=== PATIENT | male | born 1955 | race African-American/Black ===

== ENCOUNTER 2017-07-26 14:15 | Outpatient (CLI) | payer OTHER ==
[2017-07-26 15:08] LABS: INR-International Normal Ratio 1.1; PTT 28.8 SEC (22.9-36.1); Prothrombin Time 14.2 SEC (12.0-14.7)
[2017-07-26 15:18] LABS: ALT (SGPT) 29 U/L (8-55); AST (SGOT) 31 U/L (5-34); Albumin 3.9 g/dL (3.5-5.0); Alkaline Phosphatase 177 U/L (40-150); Anion Gap 13 mmol/L (10-20); BUN (Urea Nitrogen) 26 mg/dL (8.4-25.7); Bilirubin, Total 2.7 mg/dL (0.2-1.2); Calc. Creatinine Clearance 0 mL/min (70-130); Calcium 9.6 mg/dL (7.8-10.44); Carbon Dioxide 30 mmol/L (22-29); Chloride 101 mmol/L (98-107); Estimated GFR-MDRD 78; Globulin 3.8 g/dL (2.4-3.5); Glucose 229 mg/dL (70-105); Potassium 3.5 mmol/L (3.5-5.1); Protein, Total 7.7 g/dL (6.0-8.3); Sodium 140 mmol/L (136-145)
== END 2017-07-26 14:16 | disposition home or self-care (01) ==
LOC: LABBT 14:15
PROVIDERS: ATTEND Internal Medicine Cardiovascular Disease
DX: Z01.818 Encounter for other preprocedural examination (principal); I50.9 Heart failure, unspecified
CPT/HCPCS: 80053; 85610; 85730

== ENCOUNTER → 2017-07-27 | Day surgery (SDC) | payer OTHER ==
[2017-07-26 14:35] VITALS: BMI 26.3
[~2017-07-27] MED LIST: Diazepam 5 MG TAB ONE; Heparin 10,000 UNITS/1 ML VIAL ONE; Iopamidol 370 76% 100 ML VIAL ONE; Lidocaine 1% (PF) 30 ML VIAL ONE; Nitroglycerin 100MG/250ML BOT 250 ML ONE; Verapamil 5 MG/2 ML VIAL ONE
== END ==
LOC: CCL 09:43
PROVIDERS: ATTEND Internal Medicine Cardiovascular Disease
DX: I25.10 Atherosclerotic heart disease of native coronary artery without angina pectoris (principal); I11.0 Hypertensive heart disease with heart failure; I50.20 Unspecified systolic (congestive) heart failure; I25.5 Ischemic cardiomyopathy; E11.9 Type 2 diabetes mellitus without complications; E78.5 Hyperlipidemia, unspecified; F17.210 Nicotine dependence, cigarettes, uncomplicated; Z79.4 Long term (current) use of insulin; Z79.82 Long term (current) use of aspirin
CPT/HCPCS: 36416; 80053; 85610; 85730; 93458; C1769; J1644; J2001

== ENCOUNTER 2017-08-30 11:12 | Outpatient (CLI) | payer OTHER ==
[2017-08-30 13:05] LABS: #Eosinphils 0.1 thou/uL (0.0-0.7); #Lymphocytes 1.4 thou/uL (1.20-3.40); #Monocytes 0.4 thou/uL (0.11-0.59); #Neutrophils 3.8 thou/uL (1.40-6.50); %Basophils 0.6 % (0.0-1.0); %Eosinophils 1.5 % (0.0-10.0); %Lymphocytes 23.6 % (21.0-51.0); %Monocytes 7.6 % (0.0-10.0); %Neutrophils 66.7 % (42.0-75.0); Hemoglobin 13.1 g/dL (14.0-18.0); Mean Corpuscular HGB CONC 33.3 g/dL (32.0-36.0); Mean Corpuscular Hemoglobin 35.2 pg (27.0-31.0); Mean Platelet Volume 8.8 fL (7.4-10.4); Platelet Count 130 thou/uL (130-400); RBC Distribution Width 13.5 % (11.5-14.5); Red Blood Cell (RBC) Count 3.71 mill/uL (4.70-6.10); White Blood Cell (WBC) Count 5.7 thou/uL (4.8-10.8)
[2017-08-30 13:24] LABS: Anion Gap 13 mmol/L (10-20); BUN (Urea Nitrogen) 24 mg/dL (8.4-25.7); Calc. Creatinine Clearance 0 mL/min (70-130); Calcium 9.2 mg/dL (7.8-10.44); Carbon Dioxide 27 mmol/L (22-29); Chloride 102 mmol/L (98-107); Estimated GFR-MDRD 68; Glucose 125 mg/dL (70-105); Potassium 3.1 mmol/L (3.5-5.1); Sodium 139 mmol/L (136-145)
== END 2017-08-30 11:13 | disposition home or self-care (01) ==
LOC: LABBT 11:12
PROVIDERS: ATTEND Surgery
DX: Z01.812 Encounter for preprocedural laboratory examination (principal); K40.90 Unilateral inguinal hernia, without obstruction or gangrene, not specified as recurrent
CPT/HCPCS: 80048; 85025

== ENCOUNTER 2017-09-09 06:38 | Day surgery (SDC) | payer OTHER ==
[2017-08-30 11:32] VITALS: BMI 23.6
[2017-09-09] MEDS ORDERED: CEFAZOLIN/Water 2 GM/20 ML SYRINGE ONE (07:07)
[2017-09-09] MEDS ORDERED: Bupivacaine/Epinephrine 0.25% 30 ML VIAL ONE (08:22)
[2017-09-09] MEDS ORDERED: Lidocaine 2% 10 ML INJ ONE (08:22)
[2017-09-09] MEDS ORDERED: Ketamine 50 MG/ML VIAL ONE (08:39)
[2017-09-09] MEDS ORDERED: Midazolam HCl 2 mg/2 ml Vial ONE (08:39)
[2017-09-09] MEDS ORDERED: Bupivacaine PF 0.5% 30 ML VIAL ONE (09:15)
[2017-09-09] MEDS ORDERED: HYDROcodone/Acetaminophen 5/325 mg Tablet ONE (11:23)
[2017-09-09] MEDS ORDERED: Ondansetron HCl/PF 4 MG/2 ML Vial ONE (12:39)
[2017-09-09] MEDS ORDERED: PROPOFOL 200 MG/20 ML VIAL ONE (12:39)
--- NOTE | 2017-09-10 07:24 | OP ---
DATE OF PROCEDURE: 09/09/2017 PREOPERATIVE DIAGNOSIS: Left inguinal hernia. POSTOPERATIVE DIAGNOSIS: Left inguinal hernia. PROCEDURE: Left inguinal hernia repair with mesh, PHS extended. SURGEON: Geovanny Moss M.D. ANESTHESIA: General. ESTIMATED BLOOD LOSS: Minimal. COMPLICATIONS: None. SPECIMEN: None. FINDINGS: Indirect left inguinal hernia. TECHNIQUE: The patient was taken to the operating room and placed supine on the table. After genera l anesthetic was obtained, bilateral groins and abdomen shaved, prepped, and draped in a sterile [facility]. Oblique incision made above the pubic tubercle in left lower quadrant. Cautery dissected down through Ngoc's to expose the external oblique. External oblique fibers opened along the course of the external ring. Contents of inguinal canal were resected from the backside of the external obliqu e. The ilioinguinal nerve was found and segmentally removed to prevent postop pain. Cord structures were mobilized on the pubic tubercle using a Nicolette drain. Superior medially dissection on the cor d showed there to be an indirect hernia sac. High ligation of the sac was performed after it was ope aria to reveal no obvious intra-abdominal contents. There was also a direct defect. The floor was op ened and the preperitoneal space bluntly dissected using wet unraveled Ray-Wai. The PHS extended mes h brought into the sterile field. The underlay was placed in the preperitoneal space, its fibers pride d out flat against the posterior abdominal. The overlay is laid in the floor of the inguinal canal. The overlay is cut to incorporate the internal ring. The overlay is sewn distally to the pubic tube rcle, medially to the transverse arch, laterally to the shelving edge of inguinal ligament. The two ends of cut mesh were reapproximated at the shelving edging of ligament to reform the internal ring. The mesh is tucked back under the external oblique proximally. The wound was irrigated. There is n o bleeding. Local anesthetic is applied. Tunneled catheter for postop pain threaded from above the incision left on top of the mesh. External oblique closed using 3-0 Vicryl. Ngoc's closed using 3 -0 Vicryl. Skin closed with running 4-0 Monocryl and Dermabond. The patient is in en route to [facility] [place] in stable condition. All instrument counts, needle counts, lap counts were correct.
== END 2017-09-09 12:15 | disposition home or self-care (01) ==
LOC: SDC 06:38
PROVIDERS: ATTEND Surgery
PROC: 0YU60JZ Supplement Left Inguinal Region with Synthetic Substitute, Open Approach (ICD-10-PCS; principal; 2017-09-09)
DX: K40.20 Bilateral inguinal hernia, without obstruction or gangrene, not specified as recurrent (principal); I25.10 Atherosclerotic heart disease of native coronary artery without angina pectoris; I13.0 Hypertensive heart and chronic kidney disease with heart failure and stage 1 through stage 4 chronic kidney disease, or unspecified chronic kidney disease; E11.22 Type 2 diabetes mellitus with diabetic chronic kidney disease; N18.9 Chronic kidney disease, unspecified; I50.9 Heart failure, unspecified; E78.5 Hyperlipidemia, unspecified; Z87.891 Personal history of nicotine dependence; Z79.4 Long term (current) use of insulin; Z79.51 Long term (current) use of inhaled steroids; Z79.82 Long term (current) use of aspirin; Z79.899 Other long term (current) drug therapy; Z95.5 Presence of coronary angioplasty implant and graft; Z95.810 Presence of automatic (implantable) cardiac defibrillator
CPT/HCPCS: 36416; A4306; C1781; J2250; J2405; J2704; S0020

== ENCOUNTER 2018-03-06 05:08 | Emergency (ER) | payer OTHER ==
[2018-03-06 06:53] LABS: #Basophils 0.1 thou/uL (0.0-0.2); #Eosinphils 0.1 thou/uL (0.0-0.7); #Lymphocytes 1.3 thou/uL (1.20-3.40); #Monocytes 0.8 thou/uL (0.11-0.59); #Neutrophils 5.4 thou/uL (1.40-6.50); %Basophils 0.8 % (0.0-1.0); %Eosinophils 1.6 % (0.0-10.0); %Lymphocytes 16.6 % (21.0-51.0); %Monocytes 10.4 % (0.0-10.0); %Neutrophils 70.7 % (42.0-75.0); Hemoglobin 13.6 g/dL (14.0-18.0); MDiff Complete? YES; Macrocytosis SLIGHT = 6-15 cells (100X) (0-5/hpf); Mean Corpuscular HGB CONC 31.9 g/dL (32.0-36.0); Mean Corpuscular Hemoglobin 33.8 pg (27.0-31.0); Mean Platelet Volume 8.7 fL (7.4-10.4); Platelet Count 140 thou/uL (130-400); RBC Distribution Width 13.7 % (11.5-14.5); Red Blood Cell (RBC) Count 4.02 mill/uL (4.70-6.10); White Blood Cell (WBC) Count 7.6 thou/uL (4.8-10.8)
[2018-03-06 06:56] LABS: ALT (SGPT) 20 U/L (8-55); AST (SGOT) 28 U/L (5-34); Albumin 3.9 g/dL (3.4-4.8); Alkaline Phosphatase 183 U/L (40-150); Anion Gap 15 mmol/L (10-20); BUN (Urea Nitrogen) 41 mg/dL (8.4-25.7); Calc. Creatinine Clearance 0 mL/min (70-130); Carbon Dioxide 27 mmol/L (23-31); Chloride 101 mmol/L (98-107); Estimated GFR-MDRD 57; Globulin 4.2 g/dL (2.4-3.5); Glucose 176 mg/dL (80-115); Potassium 3.6 mmol/L (3.5-5.1); Protein, Total 8.1 g/dL (5.8-8.1); Sodium 139 mmol/L (136-145)
[2018-03-06] MEDS ORDERED: Lidocaine 1% (PF) 30 ML VIAL ONE (07:16)
[2018-03-06] MEDS ORDERED: Ketorolac Tromethamine 30 MG/ML VIAL ONE (07:57)
[2018-03-06] MEDS ORDERED: Morphine 4 MG/ML VIAL ONE (07:57)
[2018-03-06 08:52] LABS: Body Fluid Source SYNOVIAL FLUID
[2018-03-06 08:53] LABS: Clarity Cloudy/Turbid (Clear)
[2018-03-06 08:54] LABS: BF Color Yellow; Tube # EDTA
--- NOTE | 2018-03-06 08:58 | RAD ---
RADIOGRAPH RIGHT KNEE 4 VIEWS: HISTORY: A 62-year-old male with right knee pain. FINDINGS: Joint effusion. No fracture or dislocation. Joint spaces are maintained without erosions or signifi cant osteophytes. Tiny enthesophyte at anterior superior pole of patella. Soft tissue edema. IMPRESSION: 1. Joint effusion and soft tissue edema. 2. No major osseous abnormality. POS: [facility]
[2018-03-06 09:15] LABS: BF RBC Count - Manual 128 /cumm; BF WBC/Nonhematics Ct. - Manua 224 /cumm
[2018-03-06 09:23] LABS: BF Segmented Neutrophils 60 %; Cell Count Non Hematic 40 %
--- NOTE | 2018-03-06 15:32 | CT ---
PRELIMINARY REPORT/[facility]/EMERGENTY AFTER-HOURS PROCEDURE CT Right Lower Extremity Without IV Contrast, Knee EXAM DATE/TIME: 03/06/2018 6:37 AM CLINICAL HISTORY: 62 years old, male; Pain; Knee; Right; Patient HX: 62m presents for evaluation of r knee swelling and pain which he reports has been unbearable for 4 days now. TECHNIQUE: CT of the Right lower extremity without intravenous contrast was performed. Exam focused on the knee. Coronal and sagittal reformatted images were created and reviewed. COMPARISON: No relevant prior studies available. FINDINGS: Bones/joints: There is a small to moderate RIGHT knee effusion. No acute bony fracture is demonstrate d. No acute RIGHT knee fractures demonstrated. Soft tissues: There is prepatellar soft tissue thickening/edema. IMPRESSION: 1. There is a small to moderate RIGHT knee effusion. Correlate clinically for infection. 2. There is prepatellar soft tissue thickening/edema. Thank you for allowing us to participate in the care of your patient. Dictated and Authenticated by: Irving Mancilla MD 03/06/2018 6:57 AM Central Time ([place] & [place]) FINAL REPORT CT RIGHT LOWER EXTREMITY WITHOUT IV CONTRAST: (Right knee) I agree with the preliminary report given by Dr. Irving Mancilla of [facility]. POS: [facility]
== END 2018-03-06 10:00 | disposition home or self-care (01) ==
LOC: ERS 05:08
DX: M10.9 Gout, unspecified (principal); I11.0 Hypertensive heart disease with heart failure; I50.9 Heart failure, unspecified; E11.9 Type 2 diabetes mellitus without complications; K21.9 Gastro-esophageal reflux disease without esophagitis; E78.5 Hyperlipidemia, unspecified; Z87.891 Personal history of nicotine dependence
CPT/HCPCS: 20610; 36415; 80053; 82945; 85025; 85060; 87070; 87205; 89051; 89060; 96372; J1885; J2001; J2270

== ENCOUNTER 2018-06-06 08:45 | Outpatient (CLI) | payer OTHER ==
[2018-06-06 10:28] LABS: #Lymphocytes 1.5 thou/uL (1.20-3.40); #Monocytes 0.5 thou/uL (0.11-0.59); #Neutrophils 4.2 thou/uL (1.40-6.50); %Basophils 0.7 % (0.0-1.0); %Eosinophils 0.7 % (0.0-10.0); %Lymphocytes 24.1 % (21.0-51.0); %Monocytes 8.1 % (0.0-10.0); %Neutrophils 66.4 % (42.0-75.0); Hemoglobin 14.7 g/dL (14.0-18.0); Mean Corpuscular HGB CONC 32.2 g/dL (32.0-36.0); Mean Corpuscular Hemoglobin 34.7 pg (27.0-31.0); Mean Platelet Volume 8.8 fL (7.4-10.4); Platelet Count 124 thou/uL (130-400); RBC Distribution Width 13.5 % (11.5-14.5); Red Blood Cell (RBC) Count 4.24 mill/uL (4.70-6.10); White Blood Cell (WBC) Count 6.4 thou/uL (4.8-10.8)
[2018-06-06 10:33] LABS: Anion Gap 14 mmol/L (10-20); BUN (Urea Nitrogen) 36 mg/dL (8.4-25.7); Calc. Creatinine Clearance 0 mL/min (70-130); Calcium 10.3 mg/dL (7.8-10.44); Carbon Dioxide 31 mmol/L (23-31); Chloride 97 mmol/L (98-107); Estimated GFR-MDRD 63; Glucose 120 mg/dL (80-115); Potassium 3.4 mmol/L (3.5-5.1); Sodium 139 mmol/L (136-145)
== END 2018-06-06 08:46 | disposition home or self-care (01) ==
LOC: LABBT 08:45
PROVIDERS: ATTEND Surgery
DX: Z01.818 Encounter for other preprocedural examination (principal); K40.90 Unilateral inguinal hernia, without obstruction or gangrene, not specified as recurrent
CPT/HCPCS: 80048; 85025; 93005; 93010

== ENCOUNTER 2018-06-09 06:30 | Day surgery (SDC) | payer OTHER ==
[2018-06-06 08:59] VITALS: BMI 22.4
[2018-06-09] MEDS ORDERED: Lidocaine 2% PF 5 ML VIAL ONE (08:26)
[2018-06-09] MEDS ORDERED: Bupivacaine PF 0.5% 30 ML VIAL ONE (08:26)
[2018-06-09] MEDS ORDERED: Bupivacaine/Epinephrine 0.25% 30 ML VIAL ONE (08:26)
[2018-06-09] MEDS ORDERED: Fentanyl 250 MCG/5 ML VIAL ONE (09:07)
[2018-06-09] MEDS ORDERED: PHENYLEPHRINE-NS 100 MCG/ML 10 ML SYRINGE ONE ×2 (09:44→14:45)
--- NOTE | 2018-06-09 11:39 | OP ---
DATE OF PROCEDURE: 06/09/2018 PREOPERATIVE DIAGNOSIS: Right inguinal hernia. POSTOPERATIVE DIAGNOSIS: Right inguinal hernia. PROCEDURE PERFORMED: Right inguinal hernia repair with mesh, PHS extended. ANESTHESIA: General. ESTIMATED BLOOD LOSS: Minimal. COMPLICATIONS: None. FINDINGS: Right inguinal hernia. DESCRIPTION OF PROCEDURE: The patient taken to the operating room and laid supine on the operating room table. After general anesthetic was obtained, the abdomen and right groin were all shaved, prepped, and draped in a sterile fashion. An oblique incision was made above the pubic tubercle in the right lower quadrant. Cautery was dissected down through the Ngoc's to expose the external oblique. External oblique fibers were opened along their course of the external ring. Contents of the inguinal canal were dissected from backside of the external oblique. The ilioinguinal nerve was found and segmentally high removed to prevent postop pain. Cord structures were mobilized on the pubic tubercle using a Nicolette drain. Dissection superiorly and medially on the cord showed there to be an indirect hernia sac. A high ligation was performed using 2-0 silk. There was no direct hernia. PHS extended mesh was brought into the sterile field. The underlay was placed in the preperitoneal space through the internal ring. The overlay was laid in the floor of the inguinal canal. The overlay was cut laterally to incorporate the internal ring. The overlay was sewn distally into the pubic tubercle medially to the transverse arch, laterally to the shelving edge of inguinal ligament using permanent braided suture. The two ends of the cut mesh were reapproximated at the shelving edge of inguinal ligament to reform the internal ring. The extra mesh was tacked back down to the external oblique proximally. The wound was irrigated. There was no bleeding. Local anesthetic was applied. Tunneled catheter for postop pain threaded from above the incision, left on top of the mesh. External oblique was closed using 3-0 Vicryl, Ngoc's closed using 3-0 Vicryl, skin was closed using running 4-0 Monocryl and Dermabond. The patient was sent to Recovery in stable condition. All instrument counts, needle counts, and lap counts were correct. Job ID: [id number]
[2018-06-09] MEDS ORDERED: Lidocaine 1% PF 5 ML VIAL ONE (14:45)
[2018-06-09] MEDS ORDERED: Ondansetron PF 4 MG/2 ML Vial ONE (14:45)
[2018-06-09] MEDS ORDERED: PROPOFOL 200 MG/20 ML VIAL ONE (14:45)
== END 2018-06-09 12:05 | disposition home or self-care (01) ==
LOC: SDC 06:30
PROVIDERS: ATTEND Surgery
PROC: 0YU50JZ Supplement Right Inguinal Region with Synthetic Substitute, Open Approach (ICD-10-PCS; principal; 2018-06-09)
DX: K40.90 Unilateral inguinal hernia, without obstruction or gangrene, not specified as recurrent (principal); E11.22 Type 2 diabetes mellitus with diabetic chronic kidney disease; I12.9 Hypertensive chronic kidney disease with stage 1 through stage 4 chronic kidney disease, or unspecified chronic kidney disease; N18.9 Chronic kidney disease, unspecified; I50.20 Unspecified systolic (congestive) heart failure; K21.9 Gastro-esophageal reflux disease without esophagitis; E78.5 Hyperlipidemia, unspecified; I25.10 Atherosclerotic heart disease of native coronary artery without angina pectoris; Z79.4 Long term (current) use of insulin; Z79.51 Long term (current) use of inhaled steroids; Z79.891 Long term (current) use of opiate analgesic; Z79.899 Other long term (current) drug therapy; Z95.0 Presence of cardiac pacemaker; Z95.5 Presence of coronary angioplasty implant and graft; Z87.891 Personal history of nicotine dependence
CPT/HCPCS: 36416; A4306; C1781; J0690; J2001; J3010; S0020

== ENCOUNTER 2018-12-01 10:09 | Outpatient (CLI) | payer OTHER ==
--- NOTE | 2018-12-01 10:50 | RAD ---
Exam:3 views right knee HISTORY: Pain. Swelling. COMPARISON: None FINDINGS: Small suprapatellar effusion. Patchy bone demineralization which may be due to osteopenia. Joint spaces are preserved. No acute fractures or malalignment. Remote injury to the proximal fibula is noted. IMPRESSION: No acute fracture. Patchy bone demineralization. Correlate for osteopenia. If there is co ncern for a marrow infiltrative process, MRI can be performed.
== END 2018-12-01 10:10 | disposition home or self-care (01) ==
LOC: BICRAD 10:09
PROVIDERS: ATTEND Family Medicine
DX: M25.561 Pain in right knee (principal); M81.0 Age-related osteoporosis without current pathological fracture

== ENCOUNTER 2019-01-29 01:37 | Emergency (ER) | payer OTHER ==
[2019-01-29] MEDS ORDERED: HYDROcodone/Acetaminophen 5/325 mg Tablet ONE (02:22)
--- NOTE | 2019-01-29 08:01 | RAD ---
EXAM: Portable chest PROVIDED CLINICAL HISTORY: Chest pain COMPARISON: 10/06/2016 FINDINGS: Cardiac silhouette remains enlarged. Left subclavian cardiac pacing device is again seen with lead ti ps in similar positions. No focal consolidation, pleural fluid or pneumothorax evident. IMPRESSION: No evidence for an acute cardiopulmonary process.
--- NOTE | 2019-01-29 08:03 | RAD ---
EXAM: XR Knee Lt 4 View STANDARD PROVIDED CLINICAL HISTORY: Pain status post injury COMPARISON: None FINDINGS: There is a fracture involving the tibial eminence without significant displacement. Diffuse regional osteopenia without evidence for additional fracture. Alignment appears anatomic. Joint spaces appear preserved. IMPRESSION: Tibial eminence fracture. Orthopedic consultation recommended. CODE T
== END 2019-01-29 03:15 | disposition home or self-care (01) ==
LOC: ERS 01:37
DX: M25.562 Pain in left knee (principal); R07.89 Other chest pain; I11.0 Hypertensive heart disease with heart failure; I50.9 Heart failure, unspecified; E11.9 Type 2 diabetes mellitus without complications; E78.5 Hyperlipidemia, unspecified; E78.00 Pure hypercholesterolemia, unspecified; K21.9 Gastro-esophageal reflux disease without esophagitis; Z87.891 Personal history of nicotine dependence; Z79.4 Long term (current) use of insulin; W18.30XA Fall on same level, unspecified, initial encounter
CPT/HCPCS: 71045

== ENCOUNTER 2019-06-26 19:06 | Emergency (ER) | payer OTHER ==
[2019-06-26] MEDS ORDERED: Morphine 4 MG/ML VIAL ONE (20:51)
[2019-06-26] MEDS ORDERED: Ondansetron ODT 4 MG TAB ONE (20:51)
--- NOTE | 2019-06-26 21:40 | RAD ---
Exam:4 views right elbow HISTORY: Pain. Swelling. COMPARISON: None FINDINGS: No joint effusion. Mild unchanged. No fracture or malalignment. IMPRESSION: No fracture.
--- NOTE | 2019-06-26 21:43 | RAD ---
Exam:3 views right wrist HISTORY: Swelling. Pain. COMPARISON: None FINDINGS: Intercarpal and radiocarpal joint spaces are preserved. Mild bony mineralization the visualized distal radius and ulna. No fracture, cortical irregularity or periosteal reaction. There is soft tissue swelling. IMPRESSION: 1. Distal forearm soft tissue swelling. 2. Nonspecific bony mineralization. The possibility of cellulitis and osteomyelitis cannot be exclude d. Correlate clinically.
== END 2019-06-26 22:08 | disposition home or self-care (01) ==
LOC: ERS 19:06
DX: M25.521 Pain in right elbow (principal); M25.531 Pain in right wrist; I11.0 Hypertensive heart disease with heart failure; I50.9 Heart failure, unspecified; E11.9 Type 2 diabetes mellitus without complications; E78.5 Hyperlipidemia, unspecified; E78.00 Pure hypercholesterolemia, unspecified; K21.9 Gastro-esophageal reflux disease without esophagitis; M10.9 Gout, unspecified; Z79.4 Long term (current) use of insulin; Z87.891 Personal history of nicotine dependence; Z79.82 Long term (current) use of aspirin
CPT/HCPCS: 96372; J2270; Q0162

== ENCOUNTER 2019-07-28 13:26 | Emergency (ER) | payer OTHER ==
[2019-07-28 14:06] LABS: Hemoglobin 13.6 g/dL (14.0-18.0); Mean Corpuscular HGB CONC 32.7 g/dL (32.0-36.0); Mean Corpuscular Hemoglobin 35.7 pg (27.0-31.0); RBC Distribution Width 14.3 % (11.5-14.5); Red Blood Cell (RBC) Count 3.81 mill/uL (4.70-6.10)
[2019-07-28 14:29] LABS: Band 14 % (5-11); Lymphocytes 3 % (21-51); MDiff Complete? YES; Macrocytosis SLIGHT = 6-15 cells (100X) (0-5/hpf); Mean Platelet Volume 10.1 fL (7.4-10.4); Monocytes 6 % (0-10); Neutrophil 74 % (42-75); Platelet Count 81 thou/uL (130-400); Platelet Morphology Comment Appears Decreased; Polychromasia SLIGHT = 2-3 cells (100X) (0-2/hpf); Reactive Lymphocytes 3 % (0-10); Target Cells SLIGHT = 2-5 cells (100X) (0-1/hpf); Tear Drops SLIGHT = 2-5 cells (100X) (0-1/hpf)
[2019-07-28 14:34] LABS: ALT (SGPT) 10 U/L (8-55); AST (SGOT) 18 U/L (5-34); Alkaline Phosphatase 265 U/L (40-110); Anion Gap 14 mmol/L (10-20); BUN (Urea Nitrogen) 44 mg/dL (8.4-25.7); Bilirubin, Total 3.2 mg/dL (0.2-1.2); Calc. Creatinine Clearance 0 mL/min (70-130); Calcium 9.3 mg/dL (7.8-10.44); Carbon Dioxide 25 mmol/L (23-31); Chloride 103 mmol/L (98-107); Estimated GFR-MDRD 45; Globulin 4.1 g/dL (2.4-3.5); Glucose 137 mg/dL (80-115); Lipase 23 U/L (8-78); Potassium 4.2 mmol/L (3.5-5.1); Protein, Total 8.1 g/dL (5.8-8.1); Sodium 138 mmol/L (136-145)
[2019-07-28 15:09] LABS: Bilirubin Negative (Negative); Blood, Urine 2+ (Negative); Clarity Extra Turbid (Clear); Glucose, Urine (Dipstick) Normal (Negative); Leukocyte 500 Leu/uL (Negative); Nitrite Negative (Negative); Protein, Urine (Dipstick) 50 mg/dL (Neg-Trace); RBC/HPF Greater than 50 HPF (0-3); Squamous Epithelial None Seen HPF (0-3); Transitional Epithelial 0-3 HPF (None Seen); WBC/HPF Greater than 50 HPF (0-3)
[2019-07-28 15:10] LABS: Bacteria/HPF 2+ HPF (None Seen)
[2019-07-28] MEDS ORDERED: Morphine 4 MG/ML VIAL ONE (16:00)
[2019-07-28] MEDS ORDERED: Ondansetron PF 4 MG/2 ML Vial ONE (16:00)
[2019-07-28] MEDS ORDERED: cefTRIAXone\\ROCEPHIN 1 GM VIAL ONE (16:08)
--- NOTE | 2019-07-28 16:40 | CT ---
CT Abdomen Pelvis WO Con History: Abdominal pain. Hematuria Comparison: None. Findings: Heart size is markedly enlarged. The liver is markedly enlarged with a nodular contour. Und erlying mass evaluation is severely limited. Spleen is not significantly enlarged. Moderate third spacing of fluid. No nephroureterolithiasis or hydroureteronephrosis. No secondary evidence of a recently passed stone. Exophytic hypodensity interpolar left kidney. Superior endplate compression deformities of L1 and L2 appear relatively acute/subacute. Pancreas is normal given noncontrast appearance. Small volume free fluid within the pelvis. No dilated loops of large or small bowel. Moderate diverticular disease of the sigmoid colon and desc ending colon without active current inflammation. Impression: 1. No nephroureterolithiasis or hydroureteronephrosis. No secondary evidence of a recently passed sto ne. 2. Mild prostatomegaly. 3. Large liver with hepatic cirrhosis. Given the lack of prior cross-sectional imaging of the liver, a follow-up liver protocol CT or MRI is recommended nonemergently. 4. Moderate third spacing of fluid and small volume free fluid within the pelvis. 5. Late acute/subacute superior endplate compression deformities of L1 and L2 with minimal height los s.
== END 2019-07-28 18:18 | disposition home or self-care (01) ==
LOC: ERS 13:26
DX: N30.91 Cystitis, unspecified with hematuria (principal); N17.9 Acute kidney failure, unspecified; N40.1 Benign prostatic hyperplasia with lower urinary tract symptoms; K74.60 Unspecified cirrhosis of liver; I11.0 Hypertensive heart disease with heart failure; I50.9 Heart failure, unspecified; E11.9 Type 2 diabetes mellitus without complications; E78.5 Hyperlipidemia, unspecified; E78.00 Pure hypercholesterolemia, unspecified; K21.9 Gastro-esophageal reflux disease without esophagitis; M10.9 Gout, unspecified; Z79.4 Long term (current) use of insulin; Z79.82 Long term (current) use of aspirin; Z79.899 Other long term (current) drug therapy; Z87.891 Personal history of nicotine dependence
CPT/HCPCS: 36415; 74176; 80053; 81003; 81015; 83690; 85025; 87077; 87086; 87186; 96365; 96375; J0696; J2270; J2405

== ENCOUNTER 2019-09-13 16:36 | Emergency (ER) | payer OTHER ==
--- NOTE | 2019-09-13 17:31 | RAD ---
PORTABLE CHEST: 09/13/19 HISTORY: Shortness of breath. Possible fluid overload. COMPARISON: 01/29/19. Cardiomegaly. Mild vascular engorgement. No evidence of infiltrate. No evidence of significant edema. AICD leads are unchanged in position. IMPRESSION: Cardiomegaly with mild vascular engorgement. No evidence of overt edema. POS: [facility]
[2019-09-13 17:55] LABS: Hemoglobin 12.1 g/dL (14.0-18.0); Mean Corpuscular HGB CONC 31.9 g/dL (32.0-36.0); Mean Corpuscular Hemoglobin 34.7 pg (27.0-31.0); Mean Platelet Volume 9.8 fL (7.4-10.4); Platelet Count 95 thou/uL (130-400); RBC Distribution Width 13.7 % (11.5-14.5); Red Blood Cell (RBC) Count 3.47 mill/uL (4.70-6.10); White Blood Cell (WBC) Count 4.5 thou/uL (4.8-10.8)
[2019-09-13 17:56] LABS: #Eosinphils 0.1 thou/uL (0.0-0.7); #Lymphocytes 0.9 thou/uL (1.20-3.40); #Monocytes 0.5 thou/uL (0.11-0.59); #Neutrophils 3.1 thou/uL (1.40-6.50); %Basophils 0.6 % (0.0-1.0); %Eosinophils 1.6 % (0.0-10.0); %Monocytes 11.2 % (0.0-10.0); %Neutrophils 67.7 % (42.0-75.0)
[2019-09-13 18:23] LABS: ALT (SGPT) 8 U/L (8-55); AST (SGOT) 19 U/L (5-34); Albumin 3.7 g/dL (3.4-4.8); Alkaline Phosphatase 250 U/L (40-110); Anion Gap 15 mmol/L (10-20); BUN (Urea Nitrogen) 45 mg/dL (8.4-25.7); Bilirubin, Total 3.4 mg/dL (0.2-1.2); Calc. Creatinine Clearance 0 mL/min (70-130); Calcium 9.1 mg/dL (7.8-10.44); Carbon Dioxide 28 mmol/L (23-31); Chloride 94 mmol/L (98-107); Estimated GFR-MDRD 29; Globulin 3.6 g/dL (2.4-3.5); Glucose 122 mg/dL (80-115); Potassium 3.9 mmol/L (3.5-5.1); Protein, Total 7.3 g/dL (5.8-8.1); Sodium 133 mmol/L (136-145)
[2019-09-13 18:35] LABS: CKMB 1.1 ng/mL (0-6.6)
[2019-09-13] MEDS ORDERED: Furosemide 40 MG/4 ML VIAL ONE ×2 (18:39→18:51)
[2019-09-13] MEDS ORDERED: Furosemide 100 MG/10 ML VIAL ONE ×2 (18:41→18:42)
== END 2019-09-13 18:58 | disposition home or self-care (01) ==
LOC: ERS 16:36
DX: I13.0 Hypertensive heart and chronic kidney disease with heart failure and stage 1 through stage 4 chronic kidney disease, or unspecified chronic kidney disease (principal); E11.22 Type 2 diabetes mellitus with diabetic chronic kidney disease; N18.9 Chronic kidney disease, unspecified; E87.70 Fluid overload, unspecified; I50.9 Heart failure, unspecified; K21.9 Gastro-esophageal reflux disease without esophagitis; M10.9 Gout, unspecified; Z87.891 Personal history of nicotine dependence; Z79.82 Long term (current) use of aspirin; Z79.899 Other long term (current) drug therapy; Z79.84 Long term (current) use of oral hypoglycemic drugs
CPT/HCPCS: 36415; 71045; 80048; 82553; 83880; 84484; 85025; 93005; 94760; 96374; J1940

== ENCOUNTER 2019-12-15 06:46 | Outpatient (CLI) | payer OTHER ==
[2019-12-15 11:38] LABS: Hemoglobin 11.3 g/dL (14.0-18.0); Mean Corpuscular HGB CONC 33.7 G/DL (32.0-36.0); Mean Corpuscular Hemoglobin 34.5 PG (27.0-33.0); Mean Corpuscular Volume 102.1 fl (80.0-100.0); Mean Platelet Volume 12.3 fl (7.4-10.4); Platelet Count 97 10x3/uL (130-400); RBC Distribution Width 14.7 % (11.5-14.5); Red Blood Cell (RBC) Count 3.28 10x6/uL (4.40-5.80); White Blood Cell (WBC) Count 6.2 10x3/uL (4.5-11.0)
[2019-12-15 11:53] LABS: INR-International Normal Ratio 1.4; PTT 30.8 sec (22.0-33.0); Prothrombin Time 14.3 sec (9.5-12.1)
[2019-12-15 12:01] LABS: Anion Gap 19 mmol/L (10-20); BUN (Urea Nitrogen) 36 mg/dL (8.4-25.7); Calc. Creatinine Clearance 0 mL/min (70-130); Carbon Dioxide 22 mmol/L (23-31); Chloride 95 mmol/L (98-107); Estimated GFR-MDRD 52; Glucose 95 mg/dL (80-115); Potassium 3.8 mmol/L (3.5-5.1); Sodium 132 mmol/L (136-145)
[2019-12-16 13:41] LABS: SARS-CoV-2 MS2 Positive; SARS-CoV-2 N Gene Negative; SARS-CoV-2 S Gene Negative; SARS-CoV-2 by NAA Not Detected (NotDetected); SARS-CoV-2 orf1ab Negative
--- NOTE | 2019-12-17 20:55 | EKG ---
Test Reason : Blood Pressure : / mmHG Vent. Rate : 077 BPM Atrial Rate : 077 BPM P-R Int : 272 ms QRS Dur : 222 ms QT Int : 522 ms P-R-T Axes : 067 -68 103 degrees QTc Int : 590 ms AV dual-paced rhythm with prolonged AV conduction Abnormal ECG When compared with ECG of 14-SEP-2019 15:11, Electronic ventricular pacemaker has replaced Sinus rhythm Confirmed by Monica PATRICIO ([id number]) on 12/17/2019 8:55:09 PM Referred By: MOOSE Confirmed By:Monica PATRICIO
== END 2019-12-15 06:47 | disposition home or self-care (01) ==
LOC: LABBT 06:46
PROVIDERS: ATTEND Urology
DX: Z01.818 Encounter for other preprocedural examination (principal); Z12.5 Encounter for screening for malignant neoplasm of prostate; Z20.828 Contact with and (suspected) exposure to other viral communicable diseases; E78.5 Hyperlipidemia, unspecified; I42.9 Cardiomyopathy, unspecified; E11.65 Type 2 diabetes mellitus with hyperglycemia; I25.10 Atherosclerotic heart disease of native coronary artery without angina pectoris; K40.90 Unilateral inguinal hernia, without obstruction or gangrene, not specified as recurrent; M10.9 Gout, unspecified; R31.29 Other microscopic hematuria; N40.1 Benign prostatic hyperplasia with lower urinary tract symptoms; N47.8 Other disorders of prepuce; N47.1 Phimosis; I13.0 Hypertensive heart and chronic kidney disease with heart failure and stage 1 through stage 4 chronic kidney disease, or unspecified chronic kidney disease; E11.22 Type 2 diabetes mellitus with diabetic chronic kidney disease; N18.9 Chronic kidney disease, unspecified; I50.20 Unspecified systolic (congestive) heart failure; F17.200 Nicotine dependence, unspecified, uncomplicated; Z87.440 Personal history of urinary (tract) infections
CPT/HCPCS: 80048; 85027; 85610; 85730; 87635; 93005; 93010; U0003

== ENCOUNTER 2019-12-20 07:15 | Inpatient (IN) | payer OTHER ==
[2019-12-19 09:10] VITALS: BMI 25.0
[2019-12-20] MEDS ORDERED: Levofloxacin 500 mg/D5W 100 ml Premix Bag ONE (08:09)
[2019-12-20] MEDS ORDERED: Fentanyl 100 MCG/2 ML VIAL ONE (09:29)
[2019-12-20] MEDS ORDERED: Famotidine/PF 20 mg/2ml Vial ONE (09:29)
[2019-12-20] MEDS ORDERED: Iothalamate Meglumine 60% 50 ML VIAL FS ONE (09:32)
[2019-12-20] MEDS ORDERED: Phenylephrine 10 MG/ML VIAL ONE (09:39)
[2019-12-20] MEDS ORDERED: Lidocaine 1% PF 5 ML VIAL ONE (09:42)
[2019-12-20] MEDS ORDERED: Glycopyrrolate 0.2 MG/ML 5 ML SYRINGE ONE (09:42)
[2019-12-20] MEDS ORDERED: ePHEDrine 50 MG/ML VIAL ONE (09:42)
[2019-12-20] MEDS ORDERED: Ondansetron PF 4 MG/2 ML Vial ONE (09:42)
[2019-12-20] MEDS ORDERED: Rocuronium Bromide 10 MG/ML (10ML VIAL) ONE (09:42)
[2019-12-20] MEDS ORDERED: PHENYLEPHRINE-NS 100 MCG/ML 10 ML SYRINGE ONE (09:42)
[2019-12-20] MEDS ORDERED: PROPOFOL 200 MG/20 ML VIAL ONE (09:42)
[2019-12-20] MEDS ORDERED: Metoclopramide HCl 10 MG/2 ML VIAL ONE (09:42)
[2019-12-20] MEDS ORDERED: Bacitracin 1 PK ONE ×2 (10:40→10:44)
[2019-12-20] MEDS ORDERED: Dextrose 5% in Water 1,000 ML IV PRN (11:01)
[2019-12-20] MEDS ORDERED: Phenazopyridine HCl 97.5 MG TABLET PO PRN (11:01)
[2019-12-20] MEDS ORDERED: Morphine 4 MG/ML VIAL SLOW IVP PRN (11:01)
[2019-12-20] MEDS ORDERED: hydrALAZINE 20 MG/ML VIAL SLOW IVP PRN ×2 (11:01)
[2019-12-20] MEDS ORDERED: Dextrose 50% Abboject 50 ML SYRINGE SLOW IVP PRN (11:01)
[2019-12-20] MEDS ORDERED: Morphine 2 MG/ML VIAL SLOW IVP PRN (11:01)
[2019-12-20] MEDS ORDERED: Insulin Regular 300 UNITS/3 ML VIAL SC PRN (11:01)
[2019-12-20] MEDS ORDERED: diphenhydrAMINE 50 MG/ML VIAL IVP PRN (11:01)
[2019-12-20] MEDS ORDERED: Mag-Al 1200 mg/1200 mg/30 ML UDCUP PO PRN (11:01)
[2019-12-20] MEDS ORDERED: HYDROcodone/Acetaminophen 5/325 mg Tablet PO PRN ×2 (11:01)
[2019-12-20] MEDS ORDERED: Ondansetron PF 4 MG/2 ML Vial IVP PRN (11:01)
[2019-12-20] MEDS ORDERED: Ondansetron ODT 8 MG TAB PO PRN (11:04)
[2019-12-20] MEDS ORDERED: Furosemide 20 MG/2 ML VIAL ONE (11:06)
--- NOTE | 2019-12-20 11:54 | OP ---
DATE OF PROCEDURE: 12/20/2019 PCP: Dr. Najera. PREOPERATIVE DIAGNOSES: 1. A 64-year-old male with history of BPH. 2. Phimosis. 3. History of urinary tract infection. POSTOPERATIVE DIAGNOSES: 1. A 64-year-old male with history of BPH. 2. Phimosis. 3. History of urinary tract infection. PROCEDURES PERFORMED: Transurethral vaporization of the prostate, dorsal slit. ANESTHESIA: General. COMPLICATIONS: None apparent. IV FLUIDS: 300 mL. ESTIMATED BLOOD LOSS: Minimal. SPECIMEN: None. DRAINS: 22-Belarusian 3-way Styles catheter on gravity. INDICATIONS FOR PROCEDURE AND HISTORY: Mr. Bynum is a pleasant 64-year-old male with history of diabetes, chronic kidney disease, heart failure, who presented for evaluation of UTI, microscopic hematuria, BPH. He underwent workup, demonstrating BPH component on tamsulosin, and had tight phimosis. He presents today for cysto, TUVP, dorsal slit. We discussed options of UroLift, however, it is not approved by insurance as I favor minimally invasive approach, as this was not approved by his insurance, he presents today for TUVP to treat his BPH and also dorsal slit regarding phimosis. He declined circumcision. Cardiac clearance is in chart. DESCRIPTION OF PROCEDURE: After an informed consent was signed, the patient was taken to the operating room, placed in a dorsal lithotomy position with the genital area prepped and draped in the usual surgical sterile fashion. Physical exam demonstrates tight phimosis, however, able to reduce to the level of the coronal sulcus with no lesion seen. At this time, a 21-Belarusian cystoscope was utilized for cystoscopy, which demonstrated trabeculated bladder, bilobar hyperplasia which was mild; however, he does have a tight bladder neck, and a high median bar contributing to his obstructing component. At this time, will transition to visual obturator. Using the 26-Belarusian continuous resectoscope and using a vaporization probe, we performed transurethral vaporization of the prostate, releasing his bladder neck and creating a nice anterior channel. Again, his most obstructing component was high median bar and tight bladder neck, which was addressed. Minimal bleeding was noted and a 22-Belarusian 3-way Styles catheter was inserted with mild resistance at the bladder neck; however, passed without difficulty. A 30 mL was insufflated, irrigates well and attached to gravity bag with a low rate CBI for monitoring. At this time, we performed the dorsal slit. A straight clamp was placed at the dorsal aspect of the prepuce to the level of the coronal sulcus and the foreskin was excised per the dorsal slit with Metzenbaum scissors. The edges were cauterized, and using 3-0 chromic, the edges were closed and approximated using 3-0 chromic in a continuous fashion. Bacitracin pressure dressing was applied, and he tolerated the procedure well and transported to the recovery room in stable condition. Job ID: [id number] [facility]
[2019-12-20] MEDS: cefTRIAXone\\ROCEPHIN 1 GM in Sodium Chloride 0.9% 100 ML IVPB SCH (15:20)
[2019-12-20 16:22] LABS: Anion Gap 14 mmol/L (10-20); BUN (Urea Nitrogen) 34 mg/dL (8.4-25.7); Calc. Creatinine Clearance 56 mL/min (70-130); Calcium 9.1 mg/dL (7.8-10.44); Carbon Dioxide 27 mmol/L (23-31); Chloride 101 mmol/L (98-107); Estimated GFR-MDRD 63; Glucose 94 mg/dL (80-115); Potassium 3.9 mmol/L (3.5-5.1); Sodium 138 mmol/L (136-145)
[2019-12-20 16:32] LABS: #Eosinphils 0.1 thou/uL (0.0-0.7); #Lymphocytes 0.8 thou/uL (1.20-3.40); #Monocytes 0.6 thou/uL (0.11-0.59); #Neutrophils 3.3 thou/uL (1.40-6.50); %Basophils 0.7 % (0.0-1.0); %Eosinophils 2.3 % (0.0-10.0); %Lymphocytes 16.3 % (21.0-51.0); %Monocytes 12.5 % (0.0-10.0); %Neutrophils 68.3 % (42.0-75.0); Hemoglobin 10.9 g/dL (14.0-18.0); MDiff Complete? YES; Macrocytosis SLIGHT = 6-15 cells (100X) (0-5/hpf); Mean Corpuscular HGB CONC 32.5 g/dL (32.0-36.0); Mean Corpuscular Hemoglobin 35.6 pg (27.0-31.0); Mean Platelet Volume 8.7 fL (7.4-10.4); Platelet Count 79 thou/uL (130-400); Platelet Morphology Comment Appears Decreased; Polychromasia SLIGHT = 2-3 cells (100X) (0-2/hpf); RBC Distribution Width 14.2 % (11.5-14.5); Red Blood Cell (RBC) Count 3.06 mill/uL (4.70-6.10); Target Cells SLIGHT = 2-5 cells (100X) (0-1/hpf); White Blood Cell (WBC) Count 4.8 thou/uL (4.8-10.8)
[2019-12-20] MEDS: Insulin Glargine 20 UNITS in Pre-Filled Syringe 1 EACH SC SCH (20:51)
[2019-12-20] MEDS: Atorvastatin Calcium 10 MG TAB PO SCH (20:52)
[2019-12-20] MEDS: Carvedilol 25 MG TAB PO SCH (20:52)
[2019-12-20] MEDS: Docusate 100 MG CAP PO SCH (20:52)
[2019-12-20] MEDS: Famotidine/PF 20 mg/2ml Vial SLOW IVP SCH (20:53)
[2019-12-20] MEDS: HumaLOG 300 UNITS/3 ML VIAL SC SCH (20:54)
[2019-12-20] MEDS ORDERED: Non-Formulary Item 1 EACH (Insulin Detemir [Levemir Flextouch] 100 UNIT/ML Insuln.Pen) SQ SCH (21:00)
[2019-12-21 06:49] LABS: #Eosinphils 0.1 thou/uL (0.0-0.7); #Lymphocytes 0.7 thou/uL (1.20-3.40); #Monocytes 0.8 thou/uL (0.11-0.59); #Neutrophils 4.9 thou/uL (1.40-6.50); %Basophils 0.6 % (0.0-1.0); %Eosinophils 2.2 % (0.0-10.0); %Lymphocytes 10.8 % (21.0-51.0); %Monocytes 11.7 % (0.0-10.0); %Neutrophils 74.6 % (42.0-75.0); Hemoglobin 10.9 g/dL (14.0-18.0); Mean Corpuscular HGB CONC 32.6 g/dL (32.0-36.0); Mean Platelet Volume 9.3 fL (7.4-10.4); Platelet Count 80 thou/uL (130-400); Red Blood Cell (RBC) Count 3.03 mill/uL (4.70-6.10); White Blood Cell (WBC) Count 6.5 thou/uL (4.8-10.8)
[2019-12-21 07:03] LABS: Anion Gap 14 mmol/L (10-20); BUN (Urea Nitrogen) 36 mg/dL (8.4-25.7); Calc. Creatinine Clearance 44 mL/min (70-130); Calcium 9.4 mg/dL (7.8-10.44); Carbon Dioxide 26 mmol/L (23-31); Chloride 100 mmol/L (98-107); Estimated GFR-MDRD 48; Glucose 89 mg/dL (80-115); Sodium 136 mmol/L (136-145)
--- NOTE | 2019-12-21 07:37 | PRG ---
DATE OF SERVICE: SUBJECTIVE: Patient without complaints. Vital signs are stable. CBI was held this morning, restarted due to warner red hematuria. OBJECTIVE: VITAL SIGNS: Stable. Is and Os, 7794 in and 8400 out. P.o. intake is 480. GENERAL: Patient is in no acute distress. HEART: Regular rate. LUNGS: Clear. ABDOMEN: Soft, nontender, and nondistended. : Dorsal slit site dressing changed. Minimal oozing at the incision site. No hematoma appreciated. Styles catheter demonstrates clear output. CBI at a very low rate. I did flush the tubing which demonstrates immediate clearing with no clots. EXTREMITIES: No cyanosis, clubbing, or edema. PERTINENT LABORATORY DATA: White count 6, hemoglobin 10.9, unchanged from preop. Patient does have history of thrombocytopenia with platelet count of 80. Creatinine is 1.76, yesterday was 1.3. His baseline creatinine is variable from 1.1 to 2.1. His renal function is at baseline. IMPRESSION: 1. Mr. Bynum is a 64-year-old male, with history of recurrent urinary tract infection. 2. Phimosis, BPH, postop day #1, status post dorsal slit TUVP. 3. Thrombocytopenia. His postoperative course is stable, will monitor his urine output off CBI. If concern regarding hematuria component if it persists, we will consider discharging patient with indwelling Styles catheter for few days. If it clears up throughout the day today, will consider voiding trial before discharge. Anticipate he will be discharged later this afternoon. Job ID: [id number] [facility]
[2019-12-21] MEDS ORDERED: Tamsulosin HCl 0.4 MG CAP PO SCH (09:00)
[2019-12-21] MEDS: Insulin Glargine 20 UNITS in Pre-Filled Syringe 1 EACH SC SCH ×2 (09:29→21:19)
[2019-12-21] MEDS: Spironolactone 25 MG TAB PO SCH (09:29)
[2019-12-21] MEDS: Docusate 100 MG CAP PO SCH ×2 (09:29→21:18)
[2019-12-21] MEDS: Tamsulosin HCl 0.4 MG CAP PO SCH (09:30)
[2019-12-21] MEDS: Potassium Chloride 20 MEQ TAB PO SCH (09:30)
[2019-12-21] MEDS: Carvedilol 25 MG TAB PO SCH ×2 (09:30→21:18)
[2019-12-21] MEDS: Famotidine/PF 20 mg/2ml Vial SLOW IVP SCH (09:31)
[2019-12-21] MEDS: HumaLOG 300 UNITS/3 ML VIAL SC SCH ×2 (10:22→21:19)
[2019-12-21] MEDS: Torsemide 20 MG TAB PO SCH (10:22)
[2019-12-21] MEDS ORDERED: Cepastat Lozenges 1 LOZ PO PRN (11:48)
[2019-12-21] MEDS: cefTRIAXone\\ROCEPHIN 1 GM in Sodium Chloride 0.9% 100 ML IVPB SCH (12:34)
[2019-12-21] MEDS: Atorvastatin Calcium 10 MG TAB PO SCH (21:18)
[2019-12-22 05:32] LABS: Hemoglobin 11.1 g/dL (14.0-18.0); Mean Corpuscular HGB CONC 32.7 g/dL (32.0-36.0); Mean Corpuscular Hemoglobin 35.1 pg (27.0-31.0); Mean Platelet Volume 9.7 fL (7.4-10.4); Platelet Count 79 thou/uL (130-400); RBC Distribution Width 14.1 % (11.5-14.5); Red Blood Cell (RBC) Count 3.15 mill/uL (4.70-6.10); White Blood Cell (WBC) Count 7.2 thou/uL (4.8-10.8)
[2019-12-22 05:48] LABS: Anion Gap 13 mmol/L (10-20); BUN (Urea Nitrogen) 40 mg/dL (8.4-25.7); Calc. Creatinine Clearance 39 mL/min (70-130); Calcium 9.4 mg/dL (7.8-10.44); Carbon Dioxide 26 mmol/L (23-31); Chloride 100 mmol/L (98-107); Estimated GFR-MDRD 41; Potassium 4.2 mmol/L (3.5-5.1); Sodium 135 mmol/L (136-145)
[2019-12-22 05:54] LABS: Glucose 56 mg/dL (80-115)
[2019-12-22] MEDS ORDERED: Famotidine/PF 20 mg/2ml Vial SLOW IVP SCH (09:00)
[2019-12-22] MEDS: Torsemide 20 MG TAB PO SCH (10:00)
[2019-12-22] MEDS: Spironolactone 25 MG TAB PO SCH (10:01)
[2019-12-22] MEDS: Potassium Chloride 20 MEQ TAB PO SCH (10:01)
[2019-12-22] MEDS: Tamsulosin HCl 0.4 MG CAP PO SCH (10:01)
[2019-12-22] MEDS: Docusate 100 MG CAP PO SCH (10:01)
[2019-12-22] MEDS: Carvedilol 25 MG TAB PO SCH (10:02)
[2019-12-22] MEDS: Insulin Glargine 20 UNITS in Pre-Filled Syringe 1 EACH SC SCH (10:15)
[2019-12-22] MEDS: HumaLOG 300 UNITS/3 ML VIAL SC SCH (10:18)
[2019-12-22] MEDS: cefTRIAXone\\ROCEPHIN 1 GM in Sodium Chloride 0.9% 100 ML IVPB SCH (12:07)
[2019-12-22 12:09] VITALS: BP 108/74; TEMP 99
--- NOTE | 2019-12-22 23:52 | DIS ---
DATE OF ADMISSION: 12/20/2019 DATE OF DISCHARGE: 12/22/2019 ADMITTING DIAGNOSES: 1. BPH, history of recurrent urinary tract infection. 2. Phimosis. DISCHARGE DIAGNOSES: 1. BPH, history of recurrent urinary tract infection. 2. Phimosis. INPATIENT PROCEDURE: Transurethral vaporization of the prostate, dorsal slit. CONDITION: Stable. DISPOSITION: Home with self-care. DISCHARGE MEDICATIONS: 1. Cefdinir 300 mg one p.o. b.i.d. for 5 days. 2. Azo p.r.n. followup appointment, December 25 at 1:15 p.m., for peak flow PVR. BRIEF HOSPITAL COURSE: Mr. Bynum is a pleasant 64-year-old male whom I have been following for history of BPH, obstructive urinary symptoms on medical therapy, phimosis. He has significant cardiopulmonary comorbidities and has been cleared to proceed with procedure. Surgery was uneventful, transurethral vaporization of the prostate was performed. Surgical bed demonstrated no significant bleeding. Dorsal slit was performed due to less invasive maneuver for his phimosis as he declined circumcision. Surgery was uneventful with minimal blood loss, he was observed overnight with CBI. His CBC, H and H remained stable throughout the hospital course. His H and H actually increased with followup labs demonstrating no significant anemia of concern. However, he does have low platelet count of 79 to 80. His CBI was held and he had persistent hematuria. Therefore, I did observe him for another 24 hours. His labs remained stable without evidence of acute blood loss. His CBI was held on postop day #2, which did demonstrate transparent pink tinged urine. Catheter was removed and he underwent successful voiding trial. His PVR checked prior to discharge was not significantly elevated. He felt comfortable going home. He does have a component of hematuria, however, this is mild. He is advised to hold his aspirin, ibuprofen products, and has close followup with me next week. Job ID: [id number] [facility]
[2019-12-25] MEDS ORDERED: Metolazone 5 MG TAB PO SCH (09:00)
== END 2019-12-22 13:10 | disposition home or self-care (01) | DRG 713 ==
LOC: SDC 07:15 → SJJU 11:01 → OBSVTOIN 11:01
PROVIDERS: ADMIT Urology; ATTEND Urology
PROC: 0V507ZZ Destruction of Prostate, Via Natural or Artificial Opening (ICD-10-PCS; principal; 2019-12-22)
DX: N40.1 Benign prostatic hyperplasia with lower urinary tract symptoms (principal); I50.22 Chronic systolic (congestive) heart failure; I13.0 Hypertensive heart and chronic kidney disease with heart failure and stage 1 through stage 4 chronic kidney disease, or unspecified chronic kidney disease; I42.8 Other cardiomyopathies; N02.9 Recurrent and persistent hematuria with unspecified morphologic changes; N47.1 Phimosis; Z20.828 Contact with and (suspected) exposure to other viral communicable diseases; E78.5 Hyperlipidemia, unspecified; I25.10 Atherosclerotic heart disease of native coronary artery without angina pectoris; R39.15 Urgency of urination; R35.0 Frequency of micturition; J30.2 Other seasonal allergic rhinitis; M10.9 Gout, unspecified; N18.9 Chronic kidney disease, unspecified; D69.6 Thrombocytopenia, unspecified; Z87.440 Personal history of urinary (tract) infections; Z95.810 Presence of automatic (implantable) cardiac defibrillator; Z79.4 Long term (current) use of insulin; Z95.5 Presence of coronary angioplasty implant and graft; Z87.891 Personal history of nicotine dependence; Z79.899 Other long term (current) drug therapy
CPT/HCPCS: 36415; 36416; 80048; 85025; 85027; 96374; 96375; 96376; G0378; J0696; J1815; J1940; J1956; J2370; J2405; J2704; J2765; J3010; J3490; S0028

== ENCOUNTER 2020-07-04 10:26 | Inpatient (IN) | payer OTHER ==
[2020-07-04 10:56] LABS: #Eosinphils 0.2 thou/uL (0.0-0.7); #Lymphocytes 0.7 thou/uL (1.20-3.40); #Monocytes 0.6 thou/uL (0.11-0.59); #Neutrophils 3.2 thou/uL (1.40-6.50); %Basophils 0.1 % (0.0-1.0); %Eosinophils 4.1 % (0.0-10.0); %Lymphocytes 15.2 % (21.0-51.0); %Monocytes 11.8 % (0.0-10.0); %Neutrophils 68.9 % (42.0-75.0); Mean Corpuscular HGB CONC 33.6 g/dL (32.0-36.0); Mean Corpuscular Hemoglobin 35.3 pg (27.0-31.0); Mean Platelet Volume 9.9 fL (7.4-10.4); Platelet Count 65 thou/uL (130-400); RBC Distribution Width 13.5 % (11.5-14.5); Red Blood Cell (RBC) Count 2.82 mill/uL (4.70-6.10); White Blood Cell (WBC) Count 4.6 thou/uL (4.8-10.8)
[2020-07-04 11:08] LABS: ALT (SGPT) 9 U/L (8-55); AST (SGOT) 23 U/L (5-34); Albumin 3.6 g/dL (3.4-4.8); Alkaline Phosphatase 176 U/L (40-110); Anion Gap 11 mmol/L (10-20); BUN (Urea Nitrogen) 43 mg/dL (8.4-25.7); Bilirubin, Total 2.1 mg/dL (0.2-1.2); Calc. Creatinine Clearance 0 mL/min (70-130); Calcium 8.9 mg/dL (7.8-10.44); Carbon Dioxide 28 mmol/L (23-31); Chloride 99 mmol/L (98-107); Globulin 3.6 g/dL (2.4-3.5); Glucose 121 mg/dL (80-115); Lipase 42 U/L (8-78); Potassium 4.7 mmol/L (3.5-5.1); Protein, Total 7.2 g/dL (5.8-8.1); Sodium 133 mmol/L (136-145)
[2020-07-04 11:31] LABS: CKMB 1.2 ng/mL (0-6.6)
[2020-07-04] MEDS ORDERED: Aspirin Chewable 81 MG TAB ONE (11:46)
[2020-07-04] MEDS ORDERED: Furosemide 40 MG/4 ML VIAL ONE (11:47)
[2020-07-04] MEDS ORDERED: Nitroglycerin 2% Ointment 1 INCH/1 GM Packet ONE (11:47)
[2020-07-04 12:51] LABS: Bacteria/HPF None Seen HPF (None Seen); Bilirubin Negative (Negative); Blood, Urine Trace (Negative); Clarity Clear (Clear); Glucose, Urine (Dipstick) Normal (Negative); Ketone, Urine Negative (Negative); Leukocyte Negative Leu/uL (Negative); Nitrite Negative (Negative); Protein, Urine (Dipstick) Negative (Neg-Trace); RBC/HPF 0-3 HPF (0-3); Specific Gravity, Urine 1.012 (1.002-1.036); Squamous Epithelial None Seen HPF (0-3); WBC/HPF 0-3 HPF (0-3)
[2020-07-04] MEDS ORDERED: Ondansetron PF 4 MG/2 ML Vial IVP PRN (13:15)
[2020-07-04] MEDS ORDERED: Ondansetron ODT 4 MG TAB SL PRN (13:15)
[2020-07-04 13:30] VITALS: BMI 27.6
[2020-07-04] MEDS ORDERED: Dextrose 50% Abboject 50 ML SYRINGE SLOW IVP PRN (14:04)
[2020-07-04] MEDS ORDERED: Dextrose 5% in Water 1,000 ML IV PRN (14:04)
[2020-07-04] MEDS ORDERED: HumaLOG 300 UNITS/3 ML VIAL SC PRN (14:04)
[2020-07-04] MEDS ORDERED: Heparin 5,000 UNITS/ML VIAL SC SCH (15:00)
[2020-07-04 15:43] LABS: Troponin I 0.153 ng/mL (< 0.028)
[2020-07-04 17:40] LABS: Troponin I 0.147 ng/mL (< 0.028)
[2020-07-04] MEDS: Zolpidem Tartrate 5 MG TAB PO PRN (20:21)
[2020-07-04] MEDS ORDERED: Acetaminophen 325 MG TAB PO PRN (20:32)
[2020-07-04] MEDS: HYDROcodone/Acetaminophen 5/325 mg Tablet PO PRN (20:49)
[2020-07-04] MEDS ORDERED: Carvedilol 25 MG TAB PO SCH (21:00)
[2020-07-04] MEDS ORDERED: Aspirin 325 MG TAB PO SCH (21:00)
[2020-07-04] MEDS ORDERED: Furosemide 40 MG/4 ML VIAL SLOW IVP SCH ×2 (21:00)
[2020-07-05 00:58] LABS: SARS-CoV-2 PCR by NAA Not Detected (NotDetected)
[2020-07-05 04:50] LABS: #Eosinphils 0.2 thou/uL (0.0-0.7); #Lymphocytes 0.8 thou/uL (1.20-3.40); #Monocytes 0.5 thou/uL (0.11-0.59); #Neutrophils 2.4 thou/uL (1.40-6.50); %Basophils 0.8 % (0.0-1.0); %Eosinophils 4.2 % (0.0-10.0); %Lymphocytes 19.8 % (21.0-51.0); %Monocytes 13.1 % (0.0-10.0); %Neutrophils 62.2 % (42.0-75.0); Hemoglobin 9.3 g/dL (14.0-18.0); Mean Corpuscular HGB CONC 33.1 g/dL (32.0-36.0); Mean Corpuscular Hemoglobin 34.9 pg (27.0-31.0); Mean Platelet Volume 9.9 fL (7.4-10.4); Platelet Count 65 thou/uL (130-400); RBC Distribution Width 13.2 % (11.5-14.5); Red Blood Cell (RBC) Count 2.66 mill/uL (4.70-6.10); White Blood Cell (WBC) Count 3.8 thou/uL (4.8-10.8)
[2020-07-05 05:12] LABS: Anion Gap 13 mmol/L (10-20); BUN (Urea Nitrogen) 47 mg/dL (8.4-25.7); Calc. Creatinine Clearance 35 mL/min (70-130); Calcium 8.9 mg/dL (7.8-10.44); Carbon Dioxide 26 mmol/L (23-31); Chloride 99 mmol/L (98-107); Glucose 103 mg/dL (80-115); Potassium 4.1 mmol/L (3.5-5.1); Sodium 134 mmol/L (136-145)
[2020-07-05] MEDS: Furosemide 40 MG/4 ML VIAL SLOW IVP SCH ×2 (05:49→15:19)
[2020-07-05] MEDS: Mometasone 100 MCG/PUFF (1 INHALER) INH SCH ×2 (07:55→19:20)
[2020-07-05] MEDS ORDERED: Carvedilol 25 MG TAB PO SCH (08:52)
[2020-07-05] MEDS ORDERED: Spironolactone 25 MG TAB PO SCH (09:00)
[2020-07-05] MEDS ORDERED: Cholecalciferol 1,000 UNITS (25 MCG) TAB PO SCH (09:00)
[2020-07-05] MEDS: Aspirin Chewable 81 MG TAB PO SCH (09:15)
[2020-07-05] MEDS: Metolazone 5 MG TAB PO SCH (09:15)
[2020-07-05] MEDS: Lantus 1000 UNITS/10 ML VIAL SC SCH (09:16)
[2020-07-05] MEDS: Carvedilol 6.25 MG TAB PO SCH ×2 (09:16→20:09)
[2020-07-05] MEDS: HYDROcodone/Acetaminophen 5/325 mg Tablet PO PRN ×2 (15:19→20:10)
[2020-07-05] MEDS: Zolpidem Tartrate 5 MG TAB PO PRN (20:10)
[2020-07-05 20:45] LABS: Hemoglobin 9.4 g/dL (14.0-18.0); Mean Corpuscular HGB CONC 33.5 g/dL (32.0-36.0); Mean Platelet Volume 10.1 fL (7.4-10.4); Platelet Count 68 thou/uL (130-400); RBC Distribution Width 13.4 % (11.5-14.5); Red Blood Cell (RBC) Count 2.69 mill/uL (4.70-6.10); White Blood Cell (WBC) Count 4.6 thou/uL (4.8-10.8)
[2020-07-05 21:11] LABS: Band 1 % (5-11); Eosinophils 3 % (0-10); Hypochromia SLIGHT = 6-15 cells (100X) (0-5/hpf); Lymphocytes 18 % (21-51); MDiff Complete? YES; Macrocytosis SLIGHT = 6-15 cells (100X) (0-5/hpf); Monocytes 8 % (0-10); Neutrophil 70 % (42-75); Platelet Morphology Comment Appears Decreased
[2020-07-06] MEDS: Furosemide 40 MG/4 ML VIAL SLOW IVP SCH ×2 (05:33→14:28)
[2020-07-06] MEDS: Mometasone 100 MCG/PUFF (1 INHALER) INH SCH ×2 (07:16→19:22)
[2020-07-06] MEDS ORDERED: Loratadine 10 MG TAB PO PRN (08:44)
[2020-07-06] MEDS ORDERED: Sodium Chloride 0.65% Nasal 44 ML BOT EA NARE PRN (08:44)
[2020-07-06] MEDS ORDERED: Cepastat Lozenges 1 LOZ PO PRN (08:44)
[2020-07-06] MEDS ORDERED: hydrALAZINE 20 MG/ML VIAL SLOW IVP PRN (08:44)
[2020-07-06] MEDS ORDERED: Loperamide HCl 2 MG CAP PO PRN (08:44)
[2020-07-06] MEDS ORDERED: Calcium Carbonate 500 MG ChewTAB PO PRN (08:44)
[2020-07-06] MEDS ORDERED: Senokot S 8.6-50 MG TAB PO PRN (08:44)
[2020-07-06] MEDS ORDERED: Ondansetron ODT 4 MG TAB PO PRN (08:44)
[2020-07-06] MEDS ORDERED: Ondansetron PF 4 MG/2 ML Vial IVP PRN (08:44)
[2020-07-06] MEDS ORDERED: GUAIFENESIN SF SOLN 200 MG/10 ML UDCUP PO PRN (08:44)
[2020-07-06] MEDS: Multivitamin W/ Minerals 1 TAB PO SCH (09:50)
[2020-07-06] MEDS: Cholecalciferol 1,000 UNITS (25 MCG) TAB PO SCH (09:50)
[2020-07-06] MEDS: Folic Acid 1 MG TAB PO SCH (09:50)
[2020-07-06] MEDS: Carvedilol 6.25 MG TAB PO SCH ×2 (09:50→21:09)
[2020-07-06] MEDS: Aspirin Chewable 81 MG TAB PO SCH (09:51)
[2020-07-06] MEDS: Lantus 1000 UNITS/10 ML VIAL SC SCH (09:51)
[2020-07-06] MEDS: Cyanocobalamin (Vitamin B-12) 1,000 MCG TAB PO SCH (09:51)
[2020-07-06] MEDS: Zolpidem Tartrate 5 MG TAB PO PRN (21:09)
[2020-07-07] MEDS: Furosemide 40 MG/4 ML VIAL SLOW IVP SCH ×2 (05:12→13:45)
[2020-07-07 05:16] LABS: #Eosinphils 0.2 thou/uL (0.0-0.7); #Monocytes 0.6 thou/uL (0.11-0.59); #Neutrophils 3.4 thou/uL (1.40-6.50); %Basophils 0.8 % (0.0-1.0); %Eosinophils 3.8 % (0.0-10.0); %Lymphocytes 18.2 % (21.0-51.0); %Monocytes 12.3 % (0.0-10.0); %Neutrophils 64.8 % (42.0-75.0); Hemoglobin 10.4 g/dL (14.0-18.0); Mean Corpuscular HGB CONC 32.8 g/dL (32.0-36.0); Mean Corpuscular Hemoglobin 34.4 pg (27.0-31.0); Mean Platelet Volume 10.2 fL (7.4-10.4); Platelet Count 82 thou/uL (130-400); RBC Distribution Width 13.5 % (11.5-14.5); Red Blood Cell (RBC) Count 3.02 mill/uL (4.70-6.10); White Blood Cell (WBC) Count 5.2 thou/uL (4.8-10.8)
[2020-07-07 05:38] LABS: ALT (SGPT) 9 U/L (8-55); AST (SGOT) 23 U/L (5-34); Albumin 3.9 g/dL (3.4-4.8); Alkaline Phosphatase 187 U/L (40-110); Anion Gap 15 mmol/L (10-20); BUN (Urea Nitrogen) 51 mg/dL (8.4-25.7); Bilirubin, Total 2.5 mg/dL (0.2-1.2); Calc. Creatinine Clearance 34 mL/min (70-130); Calcium 10.1 mg/dL (7.8-10.44); Carbon Dioxide 30 mmol/L (23-31); Chloride 97 mmol/L (98-107); Globulin 4.1 g/dL (2.4-3.5); Glucose 70 mg/dL (80-115); Magnesium 1.9 mg/dL (1.6-2.6); Potassium 3.6 mmol/L (3.5-5.1); Sodium 138 mmol/L (136-145)
[2020-07-07] MEDS: Mometasone 100 MCG/PUFF (1 INHALER) INH SCH ×2 (07:33→18:19)
[2020-07-07] MEDS: Lantus 1000 UNITS/10 ML VIAL SC SCH (09:41)
[2020-07-07] MEDS: Folic Acid 1 MG TAB PO SCH (09:47)
[2020-07-07] MEDS: Cholecalciferol 1,000 UNITS (25 MCG) TAB PO SCH (09:47)
[2020-07-07] MEDS: Multivitamin W/ Minerals 1 TAB PO SCH (09:47)
[2020-07-07] MEDS: Aspirin Chewable 81 MG TAB PO SCH (09:47)
[2020-07-07] MEDS: Cyanocobalamin (Vitamin B-12) 1,000 MCG TAB PO SCH (09:47)
[2020-07-07] MEDS: Carvedilol 6.25 MG TAB PO SCH ×2 (09:59→20:12)
[2020-07-07] MEDS: Zolpidem Tartrate 5 MG TAB PO PRN (20:11)
[2020-07-08 04:57] LABS: #Eosinphils 0.2 thou/uL (0.0-0.7); #Lymphocytes 0.8 thou/uL (1.20-3.40); #Monocytes 0.7 thou/uL (0.11-0.59); #Neutrophils 2.8 thou/uL (1.40-6.50); %Basophils 0.9 % (0.0-1.0); %Eosinophils 3.6 % (0.0-10.0); %Lymphocytes 17.7 % (21.0-51.0); %Monocytes 14.9 % (0.0-10.0); %Neutrophils 62.8 % (42.0-75.0); Hemoglobin 9.7 g/dL (14.0-18.0); Mean Corpuscular HGB CONC 32.6 g/dL (32.0-36.0); Mean Corpuscular Hemoglobin 34.1 pg (27.0-31.0); Mean Platelet Volume 9.8 fL (7.4-10.4); Platelet Count 81 thou/uL (130-400); RBC Distribution Width 13.5 % (11.5-14.5); Red Blood Cell (RBC) Count 2.84 mill/uL (4.70-6.10); White Blood Cell (WBC) Count 4.5 thou/uL (4.8-10.8)
[2020-07-08 05:14] LABS: Anion Gap 14 mmol/L (10-20); BUN (Urea Nitrogen) 48 mg/dL (8.4-25.7); Calc. Creatinine Clearance 37 mL/min (70-130); Calcium 9.9 mg/dL (7.8-10.44); Carbon Dioxide 30 mmol/L (23-31); Chloride 95 mmol/L (98-107); Glucose 70 mg/dL (80-115); Potassium 3.3 mmol/L (3.5-5.1); Sodium 136 mmol/L (136-145)
[2020-07-08] MEDS: Furosemide 40 MG/4 ML VIAL SLOW IVP SCH ×2 (05:38→14:39)
[2020-07-08] MEDS: Mometasone 100 MCG/PUFF (1 INHALER) INH SCH ×2 (07:14→18:39)
[2020-07-08] MEDS: Aspirin Chewable 81 MG TAB PO SCH (08:11)
[2020-07-08] MEDS: Folic Acid 1 MG TAB PO SCH (08:12)
[2020-07-08] MEDS: Cholecalciferol 1,000 UNITS (25 MCG) TAB PO SCH (08:12)
[2020-07-08] MEDS: Cyanocobalamin (Vitamin B-12) 1,000 MCG TAB PO SCH (08:12)
[2020-07-08] MEDS: Multivitamin W/ Minerals 1 TAB PO SCH (08:12)
[2020-07-08] MEDS: Metolazone 5 MG TAB PO SCH (08:12)
[2020-07-08] MEDS: Carvedilol 6.25 MG TAB PO SCH (08:13)
[2020-07-08] MEDS: Lantus 1000 UNITS/10 ML VIAL SC SCH (08:14)
[2020-07-08] MEDS: Bisacodyl 5 MG TAB PO PRN (20:24)
[2020-07-09] MEDS: Furosemide 40 MG/4 ML VIAL SLOW IVP SCH (06:14)
[2020-07-09] MEDS: Mometasone 100 MCG/PUFF (1 INHALER) INH SCH ×2 (06:52→18:19)
[2020-07-09] MEDS: Multivitamin W/ Minerals 1 TAB PO SCH (09:01)
[2020-07-09] MEDS: Cholecalciferol 1,000 UNITS (25 MCG) TAB PO SCH (09:01)
[2020-07-09] MEDS: Aspirin Chewable 81 MG TAB PO SCH (09:01)
[2020-07-09] MEDS: Lantus 1000 UNITS/10 ML VIAL SC SCH (09:02)
[2020-07-09 09:55] LABS: Anion Gap 16 mmol/L (10-20); BUN (Urea Nitrogen) 45 mg/dL (8.4-25.7); Calc. Creatinine Clearance 41 mL/min (70-130); Calcium 9.7 mg/dL (7.8-10.44); Carbon Dioxide 31 mmol/L (23-31); Chloride 94 mmol/L (98-107); Glucose 140 mg/dL (80-115); Magnesium 1.9 mg/dL (1.6-2.6); Phosphorus 3.7 mg/dL (2.3-4.7); Potassium 3.4 mmol/L (3.5-5.1); Sodium 138 mmol/L (136-145)
[2020-07-09] MEDS: Furosemide 20 MG TAB PO SCH (14:54)
[2020-07-09] MEDS: Carvedilol 6.25 MG TAB PO SCH (20:42)
[2020-07-09] MEDS: Bisacodyl 5 MG TAB PO PRN (20:43)
[2020-07-10] MEDS: Mometasone 100 MCG/PUFF (1 INHALER) INH SCH (06:57)
[2020-07-10 07:25] VITALS: TEMP 98.1
[2020-07-10] MEDS: Metolazone 5 MG TAB PO SCH (08:29)
[2020-07-10] MEDS: Cholecalciferol 1,000 UNITS (25 MCG) TAB PO SCH (08:29)
[2020-07-10] MEDS: Multivitamin W/ Minerals 1 TAB PO SCH (08:29)
[2020-07-10] MEDS: Carvedilol 6.25 MG TAB PO SCH (08:29)
[2020-07-10] MEDS: Aspirin Chewable 81 MG TAB PO SCH (08:30)
[2020-07-10] MEDS: Lantus 1000 UNITS/10 ML VIAL SC SCH (08:30)
[2020-07-10] MEDS: Furosemide 20 MG TAB PO SCH (08:30)
[2020-07-10 11:34] VITALS: BP 110/68
== END 2020-07-10 13:50 | disposition home or self-care (01) | DRG 280 ==
LOC: ERS 10:26 → 2NO 11:40
PROVIDERS: ADMIT Internal Medicine; ATTEND Internal Medicine
DX: I13.0 Hypertensive heart and chronic kidney disease with heart failure and stage 1 through stage 4 chronic kidney disease, or unspecified chronic kidney disease (principal); I21.A1 Myocardial infarction type 2; I50.23 Acute on chronic systolic (congestive) heart failure; N17.9 Acute kidney failure, unspecified; K92.1 Melena; Z20.822 Contact with and (suspected) exposure to COVID-19; E78.5 Hyperlipidemia, unspecified; E78.00 Pure hypercholesterolemia, unspecified; K21.9 Gastro-esophageal reflux disease without esophagitis; M10.9 Gout, unspecified; E11.22 Type 2 diabetes mellitus with diabetic chronic kidney disease; N18.32 Chronic kidney disease, stage 3b; E78.2 Mixed hyperlipidemia; D53.9 Nutritional anemia, unspecified; D69.6 Thrombocytopenia, unspecified; I42.9 Cardiomyopathy, unspecified; I25.10 Atherosclerotic heart disease of native coronary artery without angina pectoris; K74.60 Unspecified cirrhosis of liver; Z79.82 Long term (current) use of aspirin; Z79.899 Other long term (current) drug therapy; Z79.4 Long term (current) use of insulin; Z95.810 Presence of automatic (implantable) cardiac defibrillator; Z79.01 Long term (current) use of anticoagulants; Z87.891 Personal history of nicotine dependence
CPT/HCPCS: 36415; 36416; 71045; 80048; 80053; 81003; 81015; 82274; 82550; 82553; 82607; 82746; 83690; 83735; 83880; 84100; 84484; 85025; 93005; 96374; J1815; J1940; U0003; U0005

== ENCOUNTER 2020-10-24 08:39 | Outpatient (CLI) | payer OTHER ==
[2020-10-25 00:34] LABS: SARS-CoV-2 PCR by NAA Not Detected (NotDetected)
== END 2020-10-24 08:40 | disposition home or self-care (01) ==
LOC: LABBT 08:39
PROVIDERS: ATTEND Internal Medicine Gastroenterology
DX: Z01.812 Encounter for preprocedural laboratory examination (principal); D53.9 Nutritional anemia, unspecified; R19.5 Other fecal abnormalities; N18.4 Chronic kidney disease, stage 4 (severe); K74.60 Unspecified cirrhosis of liver; Z20.822 Contact with and (suspected) exposure to COVID-19
CPT/HCPCS: U0003; U0005

== ENCOUNTER 2020-10-29 06:41 | Day surgery (SDC) | payer OTHER ==
[2020-10-28 10:24] VITALS: BMI 24.5
[2020-10-29] MEDS ORDERED: Dextrose 50% Abboject 50 ML SYRINGE ONE (07:38)
[2020-10-29] MEDS ORDERED: PHENYLEPHRINE-NS 100 MCG/ML 10 ML SYRINGE ONE ×2 (08:48→09:19)
[2020-10-29] MEDS ORDERED: PROPOFOL 200 MG/20 ML VIAL ONE (09:19)
[2020-10-29] MEDS ORDERED: Lidocaine 1% PF 5 ML VIAL ONE (09:19)
[2020-10-29 12:25] LABS: HBSAg Index 0.24 S/CO (0-0.99); Hep B Surf Ag Non-Reactive S/CO (NonReactive); Hep C IgG Ab Non-Reactive (NonReactive); Hep C Index 0.23 S/CO (0-0.79)
[2020-10-29 12:41] LABS: HBSAB Concentration 70.45 mIU/mL; Hep B Surf AB Reactive (NonReactive)
== END 2020-10-29 11:10 | disposition home or self-care (01) ==
LOC: SDC 06:41
PROVIDERS: ATTEND Internal Medicine Gastroenterology
PROC: 0DB78ZX Excision of Stomach, Pylorus, Via Natural or Artificial Opening Endoscopic, Diagnostic (ICD-10-PCS; principal; 2020-10-29)
PROC: 0DJD8ZZ Inspection of Lower Intestinal Tract, Via Natural or Artificial Opening Endoscopic (ICD-10-PCS; principal; 2020-10-29)
DX: K29.50 Unspecified chronic gastritis without bleeding (principal); D53.9 Nutritional anemia, unspecified; R19.5 Other fecal abnormalities; K21.9 Gastro-esophageal reflux disease without esophagitis; K74.60 Unspecified cirrhosis of liver; K76.6 Portal hypertension; K31.89 Other diseases of stomach and duodenum; E78.00 Pure hypercholesterolemia, unspecified; I13.0 Hypertensive heart and chronic kidney disease with heart failure and stage 1 through stage 4 chronic kidney disease, or unspecified chronic kidney disease; E11.22 Type 2 diabetes mellitus with diabetic chronic kidney disease; N18.4 Chronic kidney disease, stage 4 (severe); I50.9 Heart failure, unspecified; E78.5 Hyperlipidemia, unspecified; I08.1 Rheumatic disorders of both mitral and tricuspid valves; I25.10 Atherosclerotic heart disease of native coronary artery without angina pectoris; F17.210 Nicotine dependence, cigarettes, uncomplicated; Z95.810 Presence of automatic (implantable) cardiac defibrillator; Z79.51 Long term (current) use of inhaled steroids; Z79.4 Long term (current) use of insulin; Z79.82 Long term (current) use of aspirin; Z79.899 Other long term (current) drug therapy; Z87.19 Personal history of other diseases of the digestive system; Z98.890 Other specified postprocedural states; Z95.5 Presence of coronary angioplasty implant and graft; Z86.010 Personal history of colon polyps
CPT/HCPCS: 36415; 36416; 82103; 83516; 86038; 86225; 86706; 86708; 86803; 87340; 88305; 88312; J2704

== ENCOUNTER 2020-12-06 07:46 | Inpatient (IN) | payer OTHER ==
[2020-12-06 09:16] LABS: #Eosinphils 0.1 thou/uL (0.0-0.7); #Lymphocytes 0.9 thou/uL (1.20-3.40); #Monocytes 0.6 thou/uL (0.11-0.59); #Neutrophils 3.8 thou/uL (1.40-6.50); %Basophils 0.7 % (0.0-1.0); %Eosinophils 2.5 % (0.0-10.0); %Lymphocytes 16.3 % (21.0-51.0); %Monocytes 11.3 % (0.0-10.0); %Neutrophils 69.3 % (42.0-75.0); Hemoglobin 9.2 g/dL (14.0-18.0); Mean Corpuscular HGB CONC 31.7 g/dL (32.0-36.0); Mean Corpuscular Hemoglobin 32.5 pg (27.0-31.0); Mean Platelet Volume 8.9 fL (7.4-10.4); Platelet Count 118 thou/uL (130-400); RBC Distribution Width 15.6 % (11.5-14.5); Red Blood Cell (RBC) Count 2.84 mill/uL (4.70-6.10); White Blood Cell (WBC) Count 5.5 thou/uL (4.8-10.8)
[2020-12-06 09:18] LABS: CKMB 3.5 ng/mL (0-6.6)
[2020-12-06 09:51] LABS: Burr Cells SLIGHT = 2-5 cells (100X) (0-1/hpf); MDiff Complete? YES; Ovalocytes SLIGHT = 2-5 cells (100X) (0-1/hpf); Platelet Morphology Comment Appears Decreased; Polychromasia SLIGHT = 2-3 cells (100X) (0-2/hpf)
[2020-12-06 10:09] LABS: ALT (SGPT) 7 U/L (8-55); AST (SGOT) 23 U/L (5-34); Albumin 3.4 g/dL (3.4-4.8); Alkaline Phosphatase 105 U/L (40-110); Anion Gap 18 mmol/L (10-20); BUN (Urea Nitrogen) 58 mg/dL (8.4-25.7); Bilirubin, Total 2.4 mg/dL (0.2-1.2); Calc. Creatinine Clearance 0 mL/min (70-130); Calcium 9.6 mg/dL (7.8-10.44); Carbon Dioxide 19 mmol/L (23-31); Chloride 97 mmol/L (98-107); Globulin 4.4 g/dL (2.4-3.5); Glucose 104 mg/dL (80-115); Potassium 4.2 mmol/L (3.5-5.1); Protein, Total 7.8 g/dL (5.8-8.1); Sodium 130 mmol/L (136-145)
[2020-12-06] MEDS ORDERED: Furosemide 40 MG/4 ML VIAL ONE (11:16)
[2020-12-06 14:11] LABS: Actual Bicarbonate (HCO3a) 20.9 mEq/L (22-28); Analyzer IN Cardio ER; Base Excess (BEa) -2.3 mEq/L (-2.0 to +3.0); Calcium, Ionized (arterial) 1.17 mmol/L (1.12-1.30); Carboxyhemoglobin (COHb) 0.3 gm% (0.0-3.0); Hemoglobin (Hb) 9.4 g/dL (14.0-18.0); O2 Tension (PaO2), arterial 189.9 mmHg (> 80.0); Potassium - ABG Lab 3.73 mmol/L (3.70-5.30); pH, Arterial 7.46 (7.35-7.45)
[2020-12-06 14:13] LABS: Puncture Site LRA
[2020-12-06 14:45] LABS: Troponin I 0.078 ng/mL (< 0.028)
[2020-12-06] MEDS ORDERED: Dextrose 50% Abboject 50 ML SYRINGE SLOW IVP PRN (15:13)
[2020-12-06] MEDS ORDERED: HumaLOG 300 UNITS/3 ML VIAL SC PRN ×2 (15:13)
[2020-12-06] MEDS ORDERED: Dextrose 5% in Water 1,000 ML IV PRN (15:13)
[2020-12-06] MEDS ORDERED: Enoxaparin Sodium 30 MG/0.3 ML SYRINGE SC SCH (15:15)
[2020-12-06] MEDS ORDERED: Electrolyte Replacement Protocol 1 EACH FS SCH (15:30)
[2020-12-06] MEDS ORDERED: FLU VACC QS2021-22(6MOS UP)/PF 60 MCG/0.5 ML SYRINGE IM ONE (15:45)
[2020-12-06 16:10] LABS: Troponin I 0.078 ng/mL (< 0.028)
[2020-12-06] MEDS: HYDROcodone/Acetaminophen 7.5/325 mg Tablet PO SCH (21:47)
[2020-12-06] MEDS: Atorvastatin Calcium 10 MG TAB PO SCH (21:49)
[2020-12-07 00:37] LABS: SARS-CoV-2 PCR by NAA Not Detected (NotDetected)
[2020-12-07 05:24] LABS: ALT (SGPT) 7 U/L (8-55); AST (SGOT) 20 U/L (5-34); Albumin 3.3 g/dL (3.4-4.8); Alkaline Phosphatase 104 U/L (40-110); Anion Gap 16 mmol/L (10-20); BUN (Urea Nitrogen) 62 mg/dL (8.4-25.7); Bilirubin, Total 2.2 mg/dL (0.2-1.2); Calc. Creatinine Clearance 37 mL/min (70-130); Calcium 9.4 mg/dL (7.8-10.44); Carbon Dioxide 23 mmol/L (23-31); Chloride 98 mmol/L (98-107); Globulin 3.9 g/dL (2.4-3.5); Glucose 106 mg/dL (80-115); Magnesium 1.8 mg/dL (1.6-2.6); Protein, Total 7.2 g/dL (5.8-8.1); Sodium 133 mmol/L (136-145)
[2020-12-07 05:27] LABS: Band 1 % (5-11); Hemoglobin 8.9 g/dL (14.0-18.0); Lymphocytes 14 % (21-51); MDiff Complete? YES; Mean Corpuscular HGB CONC 33.8 g/dL (32.0-36.0); Mean Corpuscular Hemoglobin 34.2 pg (27.0-31.0); Mean Platelet Volume 8.8 fL (7.4-10.4); Monocytes 12 % (0-10); Neutrophil 73 % (42-75); Platelet Count 112 thou/uL (130-400); Platelet Morphology Comment Appears Decreased; RBC Distribution Width 15.6 % (11.5-14.5); Red Blood Cell (RBC) Count 2.59 mill/uL (4.70-6.10); White Blood Cell (WBC) Count 4.7 thou/uL (4.8-10.8)
[2020-12-07] MEDS: Furosemide 40 MG/4 ML VIAL SLOW IVP SCH ×2 (06:42→15:39)
[2020-12-07] MEDS: HYDROcodone/Acetaminophen 7.5/325 mg Tablet PO SCH ×2 (08:31→21:28)
[2020-12-07] MEDS: Enoxaparin Sodium 30 MG/0.3 ML SYRINGE SC SCH (08:33)
[2020-12-07] MEDS ORDERED: Magnesium 2 GM/50 ML 2 GM in Premix Bag 1 BAG IVPB SCH (10:00)
[2020-12-07] MEDS: Atorvastatin Calcium 10 MG TAB PO SCH (21:28)
[2020-12-07] MEDS: Potassium Chloride 10 MEQ TAB PO SCH (21:28)
[2020-12-07] MEDS: Carvedilol 3.125 MG TAB PO SCH (21:29)
[2020-12-08 05:31] LABS: Band 2 % (5-11); Hemoglobin 8.6 g/dL (14.0-18.0); Lymphocytes 20 % (21-51); MDiff Complete? YES; Mean Corpuscular HGB CONC 32.3 g/dL (32.0-36.0); Mean Corpuscular Hemoglobin 32.9 pg (27.0-31.0); Metamyelocyte 1 % (0-0); Monocytes 13 % (0-10); Neutrophil 64 % (42-75); Platelet Count 113 thou/uL (130-400); Platelet Morphology Comment Appears Decreased; RBC Distribution Width 15.9 % (11.5-14.5); Red Blood Cell (RBC) Count 2.63 mill/uL (4.70-6.10); White Blood Cell (WBC) Count 4.3 thou/uL (4.8-10.8)
[2020-12-08 05:52] LABS: ALT (SGPT) 7 U/L (8-55); AST (SGOT) 20 U/L (5-34); Albumin 3.3 g/dL (3.4-4.8); Alkaline Phosphatase 99 U/L (40-110); Anion Gap 14 mmol/L (10-20); BUN (Urea Nitrogen) 64 mg/dL (8.4-25.7); Bilirubin, Total 2.1 mg/dL (0.2-1.2); Calc. Creatinine Clearance 34 mL/min (70-130); Calcium 9.5 mg/dL (7.8-10.44); Carbon Dioxide 25 mmol/L (23-31); Chloride 97 mmol/L (98-107); Globulin 3.9 g/dL (2.4-3.5); Glucose 102 mg/dL (80-115); Magnesium 2.1 mg/dL (1.6-2.6); Potassium 4.2 mmol/L (3.5-5.1); Protein, Total 7.2 g/dL (5.8-8.1); Sodium 132 mmol/L (136-145)
[2020-12-08] MEDS: Furosemide 40 MG/4 ML VIAL SLOW IVP SCH ×2 (06:08→13:59)
[2020-12-08] MEDS: Mometasone Furoate 120 PUFF 220 MCG INH SCH ×2 (07:34→18:35)
[2020-12-08] MEDS: Senokot S 8.6-50 MG TAB PO PRN (09:42)
[2020-12-08] MEDS: Aspirin Chewable 81 MG TAB PO SCH (09:42)
[2020-12-08] MEDS: Potassium Chloride 10 MEQ TAB PO SCH ×2 (09:43→21:11)
[2020-12-08] MEDS: HYDROcodone/Acetaminophen 7.5/325 mg Tablet PO SCH ×2 (09:43→21:08)
[2020-12-08] MEDS: Spironolactone 25 MG TAB PO SCH (09:43)
[2020-12-08] MEDS: Cholecalciferol 1,000 UNITS (25 MCG) TAB PO SCH (09:43)
[2020-12-08] MEDS: Carvedilol 3.125 MG TAB PO SCH ×2 (09:43→21:11)
[2020-12-08] MEDS: Multivitamin W/ Minerals 1 TAB PO SCH (09:44)
[2020-12-08] MEDS: Lantus 1000 UNITS/10 ML VIAL SC SCH (09:50)
[2020-12-08] MEDS: Enoxaparin Sodium 30 MG/0.3 ML SYRINGE SC SCH (14:00)
[2020-12-08] MEDS: Atorvastatin Calcium 10 MG TAB PO SCH (21:11)
[2020-12-09 05:44] LABS: Anion Gap 15 mmol/L (10-20); BUN (Urea Nitrogen) 60 mg/dL (8.4-25.7); Calc. Creatinine Clearance 34 mL/min (70-130); Calcium 9.4 mg/dL (7.8-10.44); Carbon Dioxide 26 mmol/L (23-31); Chloride 99 mmol/L (98-107); Glucose 99 mg/dL (80-115); Potassium 4.6 mmol/L (3.5-5.1); Sodium 135 mmol/L (136-145)
[2020-12-09] MEDS: Furosemide 40 MG/4 ML VIAL SLOW IVP SCH ×2 (05:57→15:29)
[2020-12-09] MEDS: Enoxaparin Sodium 30 MG/0.3 ML SYRINGE SC SCH (08:53)
[2020-12-09] MEDS: Carvedilol 3.125 MG TAB PO SCH ×2 (08:54→20:21)
[2020-12-09] MEDS: Cholecalciferol 1,000 UNITS (25 MCG) TAB PO SCH (08:54)
[2020-12-09] MEDS: Multivitamin W/ Minerals 1 TAB PO SCH (08:54)
[2020-12-09] MEDS: Potassium Chloride 10 MEQ TAB PO SCH ×2 (08:55→20:21)
[2020-12-09] MEDS: Aspirin Chewable 81 MG TAB PO SCH (08:55)
[2020-12-09] MEDS: Spironolactone 25 MG TAB PO SCH (08:55)
[2020-12-09] MEDS: Lantus 1000 UNITS/10 ML VIAL SC SCH (08:55)
[2020-12-09] MEDS ORDERED: Metolazone 2.5 MG TAB PO SCH (13:30)
[2020-12-09] MEDS: HYDROcodone/Acetaminophen 7.5/325 mg Tablet PO SCH ×2 (15:10→20:21)
[2020-12-09] MEDS: Atorvastatin Calcium 10 MG TAB PO SCH (20:21)
[2020-12-10] MEDS: Furosemide 40 MG/4 ML VIAL SLOW IVP SCH ×2 (05:14→14:07)
[2020-12-10 06:00] LABS: Anion Gap 17 mmol/L (10-20); BUN (Urea Nitrogen) 60 mg/dL (8.4-25.7); Calc. Creatinine Clearance 32 mL/min (70-130); Calcium 9.6 mg/dL (7.8-10.44); Carbon Dioxide 24 mmol/L (23-31); Chloride 99 mmol/L (98-107); Glucose 111 mg/dL (80-115); Potassium 4.5 mmol/L (3.5-5.1); Sodium 135 mmol/L (136-145)
[2020-12-10] MEDS: Carvedilol 3.125 MG TAB PO SCH ×2 (09:42→20:39)
[2020-12-10] MEDS: Cholecalciferol 1,000 UNITS (25 MCG) TAB PO SCH (09:42)
[2020-12-10] MEDS: Spironolactone 25 MG TAB PO SCH (09:42)
[2020-12-10] MEDS: Multivitamin W/ Minerals 1 TAB PO SCH (09:42)
[2020-12-10] MEDS: Potassium Chloride 10 MEQ TAB PO SCH ×2 (09:42→20:39)
[2020-12-10] MEDS: Metolazone 2.5 MG TAB PO SCH (09:43)
[2020-12-10] MEDS: Aspirin Chewable 81 MG TAB PO SCH (09:43)
[2020-12-10] MEDS: Enoxaparin Sodium 30 MG/0.3 ML SYRINGE SC SCH (09:43)
[2020-12-10] MEDS: Lantus 1000 UNITS/10 ML VIAL SC SCH (09:43)
[2020-12-10] MEDS: HYDROcodone/Acetaminophen 7.5/325 mg Tablet PO SCH ×2 (10:54→20:38)
[2020-12-10] MEDS: Atorvastatin Calcium 10 MG TAB PO SCH (20:40)
[2020-12-11 05:16] LABS: Anion Gap 18 mmol/L (10-20); BUN (Urea Nitrogen) 63 mg/dL (8.4-25.7); Calc. Creatinine Clearance 31 mL/min (70-130); Calcium 10.2 mg/dL (7.8-10.44); Carbon Dioxide 25 mmol/L (23-31); Chloride 99 mmol/L (98-107); Glucose 102 mg/dL (80-115); Potassium 4.9 mmol/L (3.5-5.1); Sodium 137 mmol/L (136-145)
[2020-12-11] MEDS: Furosemide 40 MG/4 ML VIAL SLOW IVP SCH (05:34)
[2020-12-11] MEDS: Mometasone Furoate 120 PUFF 220 MCG INH SCH ×2 (07:34→07:35)
[2020-12-11] MEDS: Metolazone 2.5 MG TAB PO SCH (08:40)
[2020-12-11] MEDS: Aspirin Chewable 81 MG TAB PO SCH (09:04)
[2020-12-11] MEDS: Carvedilol 3.125 MG TAB PO SCH ×2 (09:04→21:22)
[2020-12-11] MEDS: Cholecalciferol 1,000 UNITS (25 MCG) TAB PO SCH (09:04)
[2020-12-11] MEDS: Multivitamin W/ Minerals 1 TAB PO SCH (09:04)
[2020-12-11] MEDS: Enoxaparin Sodium 30 MG/0.3 ML SYRINGE SC SCH ×2 (09:05→11:33)
[2020-12-11] MEDS: Lantus 1000 UNITS/10 ML VIAL SC SCH (09:07)
[2020-12-11] MEDS: HYDROcodone/Acetaminophen 7.5/325 mg Tablet PO SCH (09:14)
[2020-12-11] MEDS: Spironolactone 25 MG TAB PO SCH (09:24)
[2020-12-11] MEDS: Potassium Chloride 10 MEQ TAB PO SCH ×2 (10:48→21:22)
[2020-12-11 12:17] LABS: Bacteria/HPF None Seen HPF (None Seen); Bilirubin Negative (Negative); Blood, Urine Negative (Negative); Clarity Clear (Clear); Glucose, Urine (Dipstick) Normal (Negative); Ketone, Urine Negative (Negative); Leukocyte Negative Leu/uL (Negative); Nitrite Negative (Negative); Protein, Urine (Dipstick) Negative (Neg-Trace); RBC/HPF 0-3 HPF (0-3); Specific Gravity, Urine 1.008 (1.002-1.036); Squamous Epithelial None Seen HPF (0-3); Urobilinogen Normal mg/dL (Less than 2); WBC/HPF 0-3 HPF (0-3); pH, Urine 7.5 (5.0-9.0)
[2020-12-11 12:23] LABS: Urine Culture Reflex No No
[2020-12-11] MEDS: Atorvastatin Calcium 10 MG TAB PO SCH (21:22)
[2020-12-11] MEDS: Senokot S 8.6-50 MG TAB PO PRN (21:23)
[2020-12-12] MEDS: Mometasone Furoate 120 PUFF 220 MCG INH SCH ×2 (02:54→18:44)
[2020-12-12 05:03] LABS: Anion Gap 17 mmol/L (10-20); BUN (Urea Nitrogen) 59 mg/dL (8.4-25.7); Calc. Creatinine Clearance 32 mL/min (70-130); Calcium 10.4 mg/dL (7.8-10.44); Carbon Dioxide 26 mmol/L (23-31); Chloride 99 mmol/L (98-107); Glucose 63 mg/dL (80-115); Potassium 4.1 mmol/L (3.5-5.1); Sodium 138 mmol/L (136-145)
[2020-12-12 05:28] LABS: Anisocytosis SLIGHT = 6-15 cells (100X) (0-5/hpf); Burr Cells SLIGHT = 2-5 cells (100X) (0-1/hpf); Eosinophils 2 % (0-10); Hemoglobin 9.2 g/dL (14.0-18.0); Lymphocytes 24 % (21-51); MDiff Complete? YES; Macrocytosis SLIGHT = 6-15 cells (100X) (0-5/hpf); Mean Corpuscular HGB CONC 31.6 g/dL (32.0-36.0); Mean Corpuscular Hemoglobin 32.9 pg (27.0-31.0); Mean Platelet Volume 9.2 fL (7.4-10.4); Monocytes 9 % (0-10); Neutrophil 63 % (42-75); Ovalocytes SLIGHT = 2-5 cells (100X) (0-1/hpf); Platelet Count 87 thou/uL (130-400); Platelet Morphology Comment Appears Decreased; Polychromasia SLIGHT = 2-3 cells (100X) (0-2/hpf); Reactive Lymphocytes 2 % (0-10); White Blood Cell (WBC) Count 3.7 thou/uL (4.8-10.8)
[2020-12-12] MEDS: Cholecalciferol 1,000 UNITS (25 MCG) TAB PO SCH (09:14)
[2020-12-12] MEDS: Multivitamin W/ Minerals 1 TAB PO SCH (09:14)
[2020-12-12] MEDS: Potassium Chloride 10 MEQ TAB PO SCH ×2 (09:14→21:08)
[2020-12-12] MEDS: Aspirin Chewable 81 MG TAB PO SCH (09:14)
[2020-12-12] MEDS: Spironolactone 25 MG TAB PO SCH (09:15)
[2020-12-12] MEDS: Carvedilol 3.125 MG TAB PO SCH ×2 (09:15→21:08)
[2020-12-12] MEDS: Lantus 1000 UNITS/10 ML VIAL SC SCH (09:15)
[2020-12-12] MEDS: Furosemide 40 MG/4 ML VIAL SLOW IVP SCH (09:15)
[2020-12-12] MEDS: Enoxaparin Sodium 30 MG/0.3 ML SYRINGE SC SCH (09:23)
[2020-12-12] MEDS: Atorvastatin Calcium 10 MG TAB PO SCH (21:08)
[2020-12-13 05:09] LABS: Anion Gap 17 mmol/L (10-20); BUN (Urea Nitrogen) 53 mg/dL (8.4-25.7); Calc. Creatinine Clearance 28 mL/min (70-130); Calcium 10.3 mg/dL (7.8-10.44); Carbon Dioxide 26 mmol/L (23-31); Chloride 101 mmol/L (98-107); Glucose 105 mg/dL (80-115); Potassium 4.1 mmol/L (3.5-5.1); Sodium 140 mmol/L (136-145)
[2020-12-13] MEDS: Furosemide 40 MG/4 ML VIAL SLOW IVP SCH (05:59)
[2020-12-13] MEDS: Enoxaparin Sodium 30 MG/0.3 ML SYRINGE SC SCH (09:26)
[2020-12-13] MEDS: Lantus 1000 UNITS/10 ML VIAL SC SCH (09:26)
[2020-12-13] MEDS: Cholecalciferol 1,000 UNITS (25 MCG) TAB PO SCH (09:28)
[2020-12-13] MEDS: Aspirin Chewable 81 MG TAB PO SCH (09:28)
[2020-12-13] MEDS: Multivitamin W/ Minerals 1 TAB PO SCH (09:28)
[2020-12-13] MEDS: Carvedilol 3.125 MG TAB PO SCH ×2 (09:28→21:21)
[2020-12-13] MEDS: Potassium Chloride 10 MEQ TAB PO SCH ×2 (09:29→21:21)
[2020-12-13] MEDS: Spironolactone 25 MG TAB PO SCH (09:29)
[2020-12-13] MEDS: Mometasone Furoate 120 PUFF 220 MCG INH SCH (18:53)
[2020-12-13] MEDS: Atorvastatin Calcium 10 MG TAB PO SCH (21:21)
[2020-12-14] MEDS: Furosemide 40 MG/4 ML VIAL SLOW IVP SCH (07:21)
[2020-12-14] MEDS ORDERED: Furosemide 40 MG/4 ML VIAL SLOW IVP SCH (09:00)
[2020-12-14] MEDS: Lantus 1000 UNITS/10 ML VIAL SC SCH (09:05)
[2020-12-14] MEDS: Potassium Chloride 10 MEQ TAB PO SCH ×2 (09:05→20:42)
[2020-12-14] MEDS: Enoxaparin Sodium 30 MG/0.3 ML SYRINGE SC SCH ×2 (09:06→09:22)
[2020-12-14] MEDS: Carvedilol 3.125 MG TAB PO SCH ×2 (09:06→20:43)
[2020-12-14] MEDS: Aspirin Chewable 81 MG TAB PO SCH (09:06)
[2020-12-14] MEDS: Multivitamin W/ Minerals 1 TAB PO SCH (09:06)
[2020-12-14] MEDS: Spironolactone 25 MG TAB PO SCH (09:06)
[2020-12-14] MEDS: Cholecalciferol 1,000 UNITS (25 MCG) TAB PO SCH (09:06)
[2020-12-14 09:09] LABS: Anion Gap 18 mmol/L (10-20); BUN (Urea Nitrogen) 52 mg/dL (8.4-25.7); Calc. Creatinine Clearance 27 mL/min (70-130); Calcium 9.8 mg/dL (7.8-10.44); Carbon Dioxide 24 mmol/L (23-31); Chloride 102 mmol/L (98-107); Glucose 83 mg/dL (80-115); Potassium 4.3 mmol/L (3.5-5.1); Sodium 140 mmol/L (136-145)
[2020-12-14] MEDS: Atorvastatin Calcium 10 MG TAB PO SCH (20:42)
[2020-12-15 05:07] LABS: Anion Gap 16 mmol/L (10-20); BUN (Urea Nitrogen) 51 mg/dL (8.4-25.7); Calc. Creatinine Clearance 27 mL/min (70-130); Calcium 9.8 mg/dL (7.8-10.44); Carbon Dioxide 25 mmol/L (23-31); Chloride 103 mmol/L (98-107); Glucose 73 mg/dL (80-115); Potassium 4.3 mmol/L (3.5-5.1); Sodium 140 mmol/L (136-145)
[2020-12-15 05:13] LABS: Hemoglobin 9.5 g/dL (14.0-18.0); Mean Corpuscular HGB CONC 31.6 g/dL (32.0-36.0); Mean Corpuscular Hemoglobin 32.4 pg (27.0-31.0); Mean Platelet Volume 9.6 fL (7.4-10.4); Platelet Count 84 thou/uL (130-400); RBC Distribution Width 15.4 % (11.5-14.5); Red Blood Cell (RBC) Count 2.94 mill/uL (4.70-6.10)
[2020-12-15 05:44] LABS: Eosinophils 1 % (0-10); Lymphocytes 19 % (21-51); MDiff Complete? YES; Monocytes 17 % (0-10); Neutrophil 62 % (42-75); Platelet Morphology Comment Appears Decreased
[2020-12-15] MEDS: Mometasone Furoate 120 PUFF 220 MCG INH SCH ×2 (08:49→18:52)
[2020-12-15] MEDS: Enoxaparin Sodium 30 MG/0.3 ML SYRINGE SC SCH (08:49)
[2020-12-15] MEDS: Lantus 1000 UNITS/10 ML VIAL SC SCH (08:50)
[2020-12-15] MEDS: Carvedilol 3.125 MG TAB PO SCH ×2 (10:12→23:34)
[2020-12-15] MEDS: Cholecalciferol 1,000 UNITS (25 MCG) TAB PO SCH (10:13)
[2020-12-15] MEDS: Aspirin Chewable 81 MG TAB PO SCH (10:13)
[2020-12-15] MEDS: Potassium Chloride 10 MEQ TAB PO SCH ×2 (10:13→23:26)
[2020-12-15] MEDS: Multivitamin W/ Minerals 1 TAB PO SCH (10:13)
[2020-12-15] MEDS ORDERED: Sodium Chloride 0.9% 500 ML IV SCH (10:15)
[2020-12-15] MEDS: Atorvastatin Calcium 10 MG TAB PO SCH (23:27)
[2020-12-16 05:50] LABS: Anion Gap 17 mmol/L (10-20); BUN (Urea Nitrogen) 52 mg/dL (8.4-25.7); Calc. Creatinine Clearance 24 mL/min (70-130); Calcium 9.7 mg/dL (7.8-10.44); Carbon Dioxide 24 mmol/L (23-31); Chloride 104 mmol/L (98-107); Glucose 85 mg/dL (80-115); Magnesium 1.9 mg/dL (1.6-2.6); Potassium 4.6 mmol/L (3.5-5.1); Sodium 140 mmol/L (136-145)
[2020-12-16] MEDS ORDERED: Furosemide 40 MG/4 ML VIAL SLOW IVP SCH (08:00)
[2020-12-16] MEDS: Aspirin Chewable 81 MG TAB PO SCH (08:24)
[2020-12-16] MEDS: Multivitamin W/ Minerals 1 TAB PO SCH (08:24)
[2020-12-16] MEDS: Carvedilol 3.125 MG TAB PO SCH ×2 (08:24→21:14)
[2020-12-16] MEDS: Cholecalciferol 1,000 UNITS (25 MCG) TAB PO SCH (08:24)
[2020-12-16] MEDS: Potassium Chloride 10 MEQ TAB PO SCH ×2 (08:25→21:13)
[2020-12-16] MEDS: Lantus 1000 UNITS/10 ML VIAL SC SCH (08:25)
[2020-12-16] MEDS: Enoxaparin Sodium 30 MG/0.3 ML SYRINGE SC SCH (08:26)
[2020-12-16] MEDS: Spironolactone 25 MG TAB PO SCH (12:06)
[2020-12-16 20:25] LABS: SARS-CoV-2 PCR by NAA Not Detected (NotDetected)
[2020-12-16] MEDS: Atorvastatin Calcium 10 MG TAB PO SCH (21:13)
[2020-12-16] MEDS: DOBUTamine 500 mg/250 ml 250 ML IVPB SCH (22:24)
[2020-12-17 05:26] LABS: Anion Gap 17 mmol/L (10-20); BUN (Urea Nitrogen) 55 mg/dL (8.4-25.7); Calc. Creatinine Clearance 22 mL/min (70-130); Calcium 9.5 mg/dL (7.8-10.44); Carbon Dioxide 25 mmol/L (23-31); Chloride 102 mmol/L (98-107); Glucose 80 mg/dL (80-115); Potassium 4.8 mmol/L (3.5-5.1); Sodium 139 mmol/L (136-145)
[2020-12-17] MEDS: Carvedilol 3.125 MG TAB PO SCH ×2 (08:15→20:27)
[2020-12-17] MEDS: Cholecalciferol 1,000 UNITS (25 MCG) TAB PO SCH (08:16)
[2020-12-17] MEDS: Multivitamin W/ Minerals 1 TAB PO SCH (08:16)
[2020-12-17] MEDS: Spironolactone 25 MG TAB PO SCH (08:16)
[2020-12-17] MEDS: Aspirin Chewable 81 MG TAB PO SCH (08:16)
[2020-12-17] MEDS: Enoxaparin Sodium 30 MG/0.3 ML SYRINGE SC SCH (08:20)
[2020-12-17] MEDS: Potassium Chloride 10 MEQ TAB PO SCH ×2 (08:21→20:25)
[2020-12-17] MEDS: Mometasone Furoate 120 PUFF 220 MCG INH SCH ×2 (19:20→23:20)
[2020-12-17] MEDS: DOBUTamine 500 mg/250 ml 250 ML IVPB SCH (20:25)
[2020-12-17] MEDS: Atorvastatin Calcium 10 MG TAB PO SCH (20:25)
[2020-12-18 05:53] LABS: #Eosinphils 0.2 thou/uL (0.0-0.7); #Lymphocytes 0.5 thou/uL (1.20-3.40); #Monocytes 0.6 thou/uL (0.11-0.59); #Neutrophils 3.7 thou/uL (1.40-6.50); %Basophils 0.1 % (0.0-1.0); %Eosinophils 3.2 % (0.0-10.0); %Monocytes 11.4 % (0.0-10.0); %Neutrophils 75.4 % (42.0-75.0); Hemoglobin 8.9 g/dL (14.0-18.0); Mean Corpuscular HGB CONC 31.9 g/dL (32.0-36.0); Mean Corpuscular Hemoglobin 32.4 pg (27.0-31.0); Mean Platelet Volume 8.8 fL (7.4-10.4); Platelet Count 101 thou/uL (130-400); RBC Distribution Width 14.8 % (11.5-14.5); Red Blood Cell (RBC) Count 2.73 mill/uL (4.70-6.10)
[2020-12-18 06:36] LABS: Anion Gap 14 mmol/L (10-20); BUN (Urea Nitrogen) 52 mg/dL (8.4-25.7); Calc. Creatinine Clearance 23 mL/min (70-130); Calcium 9.3 mg/dL (7.8-10.44); Carbon Dioxide 24 mmol/L (23-31); Chloride 104 mmol/L (98-107); Glucose 109 mg/dL (80-115); Potassium 4.9 mmol/L (3.5-5.1); Sodium 137 mmol/L (136-145)
[2020-12-18] MEDS: Potassium Chloride 10 MEQ TAB PO SCH ×2 (08:37→20:10)
[2020-12-18] MEDS: Spironolactone 25 MG TAB PO SCH (08:37)
[2020-12-18] MEDS: Aspirin Chewable 81 MG TAB PO SCH (08:38)
[2020-12-18] MEDS: Carvedilol 3.125 MG TAB PO SCH (08:38)
[2020-12-18] MEDS: Cholecalciferol 1,000 UNITS (25 MCG) TAB PO SCH (08:38)
[2020-12-18] MEDS: Multivitamin W/ Minerals 1 TAB PO SCH (08:38)
[2020-12-18] MEDS: Enoxaparin Sodium 30 MG/0.3 ML SYRINGE SC SCH ×2 (08:38→08:42)
[2020-12-18 09:28] LABS: SARS-CoV-2 NAA Rapid Test Not Detected (NotDetected)
[2020-12-18 15:21] VITALS: BMI 24.4
[2020-12-18] MEDS: Atorvastatin Calcium 10 MG TAB PO SCH (20:10)
[2020-12-18] MEDS: DOBUTamine 500 mg/250 ml 250 ML IVPB SCH (20:11)
[2020-12-18] MEDS: Mometasone Furoate 120 PUFF 220 MCG INH SCH (23:20)
[2020-12-19 05:48] LABS: Anion Gap 15 mmol/L (10-20); BUN (Urea Nitrogen) 48 mg/dL (8.4-25.7); Calc. Creatinine Clearance 24 mL/min (70-130); Calcium 9.3 mg/dL (7.8-10.44); Carbon Dioxide 21 mmol/L (23-31); Chloride 105 mmol/L (98-107); Glucose 85 mg/dL (80-115); Potassium 5.2 mmol/L (3.5-5.1); Sodium 136 mmol/L (136-145)
[2020-12-19] MEDS: Cholecalciferol 1,000 UNITS (25 MCG) TAB PO SCH (08:54)
[2020-12-19] MEDS: Multivitamin W/ Minerals 1 TAB PO SCH (08:55)
[2020-12-19] MEDS: Aspirin Chewable 81 MG TAB PO SCH (08:55)
[2020-12-19] MEDS: Enoxaparin Sodium 30 MG/0.3 ML SYRINGE SC SCH (08:55)
[2020-12-19] MEDS: Potassium Chloride 10 MEQ TAB PO SCH ×2 (08:55→11:55)
[2020-12-19] MEDS ORDERED: LOKELMA 10 GM PACKET PO SCH (10:30)
[2020-12-19] MEDS: Atorvastatin Calcium 10 MG TAB PO SCH (20:52)
[2020-12-19] MEDS: hydrALAZINE 10 MG TAB PO SCH (20:52)
[2020-12-19] MEDS: DOBUTamine 500 mg/250 ml 250 ML IVPB SCH (20:53)
[2020-12-20 05:51] LABS: Anion Gap 15 mmol/L (10-20); BUN (Urea Nitrogen) 46 mg/dL (8.4-25.7); Calc. Creatinine Clearance 27 mL/min (70-130); Calcium 9.2 mg/dL (7.8-10.44); Carbon Dioxide 19 mmol/L (23-31); Chloride 104 mmol/L (98-107); Glucose 81 mg/dL (80-115); Potassium 4.5 mmol/L (3.5-5.1); Sodium 133 mmol/L (136-145)
[2020-12-20] MEDS: Mometasone Furoate 120 PUFF 220 MCG INH SCH (07:15)
[2020-12-20] MEDS: Multivitamin W/ Minerals 1 TAB PO SCH (09:17)
[2020-12-20] MEDS: Enoxaparin Sodium 30 MG/0.3 ML SYRINGE SC SCH (09:17)
[2020-12-20] MEDS: Aspirin Chewable 81 MG TAB PO SCH (09:17)
[2020-12-20] MEDS: Cholecalciferol 1,000 UNITS (25 MCG) TAB PO SCH (09:17)
[2020-12-20] MEDS: hydrALAZINE 10 MG TAB PO SCH ×4 (09:20→20:03)
[2020-12-20] MEDS: DOBUTamine 500 mg/250 ml 250 ML IVPB SCH (20:03)
[2020-12-20] MEDS: Atorvastatin Calcium 10 MG TAB PO SCH (20:03)
[2020-12-21 06:08] LABS: #Eosinphils 0.2 thou/uL (0.0-0.7); #Lymphocytes 0.5 thou/uL (1.20-3.40); #Monocytes 0.6 thou/uL (0.11-0.59); #Neutrophils 3.9 thou/uL (1.40-6.50); %Basophils 0.2 % (0.0-1.0); %Eosinophils 3.2 % (0.0-10.0); %Lymphocytes 10.3 % (21.0-51.0); %Monocytes 11.9 % (0.0-10.0); %Neutrophils 74.4 % (42.0-75.0); Hemoglobin 8.9 g/dL (14.0-18.0); Mean Corpuscular HGB CONC 32.1 g/dL (32.0-36.0); Mean Corpuscular Hemoglobin 32.3 pg (27.0-31.0); Mean Platelet Volume 8.4 fL (7.4-10.4); Platelet Count 107 thou/uL (130-400); RBC Distribution Width 14.6 % (11.5-14.5); Red Blood Cell (RBC) Count 2.75 mill/uL (4.70-6.10); White Blood Cell (WBC) Count 5.2 thou/uL (4.8-10.8)
[2020-12-21 06:29] LABS: Anion Gap 13 mmol/L (10-20); BUN (Urea Nitrogen) 39 mg/dL (8.4-25.7); Calc. Creatinine Clearance 32 mL/min (70-130); Calcium 8.9 mg/dL (7.8-10.44); Carbon Dioxide 20 mmol/L (23-31); Chloride 102 mmol/L (98-107); Glucose 89 mg/dL (80-115); Potassium 4.1 mmol/L (3.5-5.1); Sodium 131 mmol/L (136-145)
[2020-12-21] MEDS: Mometasone Furoate 120 PUFF 220 MCG INH SCH ×2 (07:00→18:27)
[2020-12-21] MEDS: Multivitamin W/ Minerals 1 TAB PO SCH (08:11)
[2020-12-21] MEDS: Cholecalciferol 1,000 UNITS (25 MCG) TAB PO SCH (08:11)
[2020-12-21] MEDS: Aspirin Chewable 81 MG TAB PO SCH (08:11)
[2020-12-21] MEDS: Enoxaparin Sodium 30 MG/0.3 ML SYRINGE SC SCH (08:11)
[2020-12-21] MEDS: hydrALAZINE 10 MG TAB PO SCH ×3 (09:13→21:13)
[2020-12-21] MEDS: Spironolactone 25 MG TAB PO SCH (09:16)
[2020-12-21] MEDS: Atorvastatin Calcium 10 MG TAB PO SCH (21:13)
[2020-12-21] MEDS: DOBUTamine 500 mg/250 ml 250 ML IVPB SCH (23:39)
[2020-12-22 06:08] LABS: #Eosinphils 0.2 thou/uL (0.0-0.7); #Lymphocytes 0.6 thou/uL (1.20-3.40); #Monocytes 0.8 thou/uL (0.11-0.59); #Neutrophils 6.1 thou/uL (1.40-6.50); %Eosinophils 2.7 % (0.0-10.0); %Monocytes 10.1 % (0.0-10.0); %Neutrophils 79.2 % (42.0-75.0); Hemoglobin 9.6 g/dL (14.0-18.0); Mean Corpuscular HGB CONC 32.9 g/dL (32.0-36.0); Mean Corpuscular Hemoglobin 32.8 pg (27.0-31.0); Mean Corpuscular Volume 99.7 fL (78.0-98.0); Mean Platelet Volume 8.5 fL (7.4-10.4); Platelet Count 128 thou/uL (130-400); RBC Distribution Width 14.3 % (11.5-14.5); Red Blood Cell (RBC) Count 2.91 mill/uL (4.70-6.10); White Blood Cell (WBC) Count 7.7 thou/uL (4.8-10.8)
[2020-12-22 06:29] LABS: Anion Gap 15 mmol/L (10-20); BUN (Urea Nitrogen) 34 mg/dL (8.4-25.7); Calc. Creatinine Clearance 36 mL/min (70-130); Calcium 8.8 mg/dL (7.8-10.44); Carbon Dioxide 18 mmol/L (23-31); Chloride 101 mmol/L (98-107); Glucose 90 mg/dL (80-115); Potassium 4.5 mmol/L (3.5-5.1); Sodium 129 mmol/L (136-145)
[2020-12-22] MEDS: Cholecalciferol 1,000 UNITS (25 MCG) TAB PO SCH (08:58)
[2020-12-22] MEDS: Spironolactone 25 MG TAB PO SCH (08:58)
[2020-12-22] MEDS: Aspirin Chewable 81 MG TAB PO SCH (08:58)
[2020-12-22] MEDS: hydrALAZINE 10 MG TAB PO SCH ×3 (08:59→22:11)
[2020-12-22] MEDS: Enoxaparin Sodium 30 MG/0.3 ML SYRINGE SC SCH (09:00)
[2020-12-22] MEDS: Multivitamin W/ Minerals 1 TAB PO SCH (09:00)
[2020-12-22] MEDS ORDERED: DOBUTamine 500 mg/250 ml 250 ML IVPB SCH (09:45)
[2020-12-22] MEDS ORDERED: Acetaminophen 325 MG/10.15 ML UDCUP PO PRN (12:15)
[2020-12-22] MEDS ORDERED: Acetaminophen 650 MG/20.3 ML UDCUP PO PRN (12:54)
[2020-12-22] MEDS: Isosorbide Dinitrate 5 MG TAB PO SCH ×2 (15:50→22:10)
[2020-12-22 16:44] LABS: Bacteria/HPF None Seen HPF (None Seen); Bilirubin Negative (Negative); Blood, Urine Trace (Negative); Clarity Clear (Clear); Glucose, Urine (Dipstick) Normal (Negative); Ketone, Urine Negative (Negative); Leukocyte 75 Leu/uL (Negative); Nitrite Negative (Negative); Protein, Urine (Dipstick) 20 mg/dL (Neg-Trace); Specific Gravity, Urine 1.023 (1.002-1.036); Squamous Epithelial 0-3 HPF (0-3); Urobilinogen 3 mg/dL (Less than 2)
[2020-12-22 16:58] LABS: Urine Culture Reflex Yes Yes
[2020-12-22] MEDS: Mometasone Furoate 120 PUFF 220 MCG INH SCH (18:26)
[2020-12-22] MEDS: Atorvastatin Calcium 10 MG TAB PO SCH (22:11)
[2020-12-23 04:30] LABS: #Eosinphils 0.3 thou/uL (0.0-0.7); #Lymphocytes 0.7 thou/uL (1.20-3.40); #Monocytes 0.8 thou/uL (0.11-0.59); #Neutrophils 7.1 thou/uL (1.40-6.50); %Basophils 0.3 % (0.0-1.0); %Eosinophils 3.1 % (0.0-10.0); %Lymphocytes 7.6 % (21.0-51.0); %Monocytes 9.5 % (0.0-10.0); %Neutrophils 79.6 % (42.0-75.0); Hemoglobin 8.9 g/dL (14.0-18.0); Mean Corpuscular HGB CONC 32.4 g/dL (32.0-36.0); Mean Corpuscular Volume 98.7 fL (78.0-98.0); Platelet Count 132 thou/uL (130-400); RBC Distribution Width 14.1 % (11.5-14.5); Red Blood Cell (RBC) Count 2.78 mill/uL (4.70-6.10); White Blood Cell (WBC) Count 8.9 thou/uL (4.8-10.8)
[2020-12-23 04:52] LABS: Anion Gap 14 mmol/L (10-20); BUN (Urea Nitrogen) 37 mg/dL (8.4-25.7); Calc. Creatinine Clearance 35 mL/min (70-130); Calcium 8.5 mg/dL (7.8-10.44); Carbon Dioxide 18 mmol/L (23-31); Chloride 101 mmol/L (98-107); Glucose 79 mg/dL (80-115); Potassium 4.3 mmol/L (3.5-5.1); Sodium 129 mmol/L (136-145)
[2020-12-23] MEDS ORDERED: Enoxaparin Sodium 40 MG/0.4 ML SYRINGE SC SCH (09:00)
[2020-12-23] MEDS: Cholecalciferol 1,000 UNITS (25 MCG) TAB PO SCH (09:32)
[2020-12-23] MEDS: Isosorbide Dinitrate 5 MG TAB PO SCH ×2 (09:32→15:27)
[2020-12-23] MEDS: Aspirin Chewable 81 MG TAB PO SCH (09:32)
[2020-12-23] MEDS: Spironolactone 25 MG TAB PO SCH (09:33)
[2020-12-23] MEDS: hydrALAZINE 10 MG TAB PO SCH ×2 (09:33→15:26)
[2020-12-23] MEDS: Multivitamin W/ Minerals 1 TAB PO SCH (09:33)
[2020-12-23] MEDS ORDERED: Digoxin 0.5 MG/2 ML AMP SLOW IVP SCH (10:00)
[2020-12-23] MEDS ORDERED: EPOETIN ALFA-EPBX (ESRD) 10,000 UNIT/ML VIAL SC SCH (10:00)
[2020-12-23] MEDS ORDERED: Digoxin 0.125 MG TAB PO SCH (14:00)
[2020-12-23] MEDS ORDERED: DOBUTamine 500 mg/250 ml 250 ML IVPB SCH (14:45)
[2020-12-23] MEDS ORDERED: cefTRIAXone\\ROCEPHIN 1 GM in Sodium Chloride 0.9% 100 ML IVPB SCH (15:00)
[2020-12-23 15:25] VITALS: BP 114/66; TEMP 99.3
[2020-12-24] MEDS ORDERED: Digoxin 0.125 MG TAB PO SCH (09:00)
== END 2020-12-23 16:30 | disposition short-term general hospital (02) | DRG 291 ==
LOC: ERS 07:46 → 2NO 12:34
PROVIDERS: ADMIT Family Medicine; ATTEND Internal Medicine
DX: I13.0 Hypertensive heart and chronic kidney disease with heart failure and stage 1 through stage 4 chronic kidney disease, or unspecified chronic kidney disease (principal); I50.23 Acute on chronic systolic (congestive) heart failure; G92.8 Other toxic encephalopathy; N17.9 Acute kidney failure, unspecified; E87.1 Hypo-osmolality and hyponatremia; N18.4 Chronic kidney disease, stage 4 (severe); D61.818 Other pancytopenia; E87.2 Acidosis; N39.0 Urinary tract infection, site not specified; I47.2 Ventricular tachycardia; Z20.822 Contact with and (suspected) exposure to COVID-19; I42.8 Other cardiomyopathies; E11.22 Type 2 diabetes mellitus with diabetic chronic kidney disease; E78.00 Pure hypercholesterolemia, unspecified; D63.1 Anemia in chronic kidney disease; E78.2 Mixed hyperlipidemia; D53.9 Nutritional anemia, unspecified; R77.8 Other specified abnormalities of plasma proteins; K21.9 Gastro-esophageal reflux disease without esophagitis; T40.605A Adverse effect of unspecified narcotics, initial encounter; I95.9 Hypotension, unspecified; E87.5 Hyperkalemia; Z95.810 Presence of automatic (implantable) cardiac defibrillator; Z79.4 Long term (current) use of insulin; Z98.890 Other specified postprocedural states; Z87.891 Personal history of nicotine dependence; Z79.82 Long term (current) use of aspirin; Z79.899 Other long term (current) drug therapy
CPT/HCPCS: 36415; 36416; 36600; 71045; 71046; 71250; 80048; 80053; 81001; 82553; 82805; 83735; 83880; 84484; 85025; 85379; 87040; 87086; 93005; 93306; 93798; 94664; 94760; 96374; 97139; J0696; J1250; J1650; J1815; J1940; J3475; J3490; J7030; U0002; U0003; U0005

== ENCOUNTER 2021-08-04 11:13 | Emergency (ER) | payer OTHER | END 2021-08-04 13:05 | disposition left against medical advice (07) | LOC: ERS 11:13 | DX: Z53.21 Procedure and treatment not carried out due to patient leaving prior to being seen by health care provider (principal) ==

== ENCOUNTER 2021-12-06 11:17 | Inpatient (IN) | payer MEDICARE, MEDICAID ==
[2021-12-06 12:26] LABS: Actual Bicarbonate (HCO3a) 18.5 mEq/L (22-28); Analyzer IN Cardio ER; Base Excess (BEa) -4.3 mEq/L (-2.0 to +3.0); CO2 Tension 26.6 mmHg (35.0-45.0); Calcium, Ionized (arterial) 1.12 mmol/L (1.12-1.30); Carboxyhemoglobin (COHb) 0.1 gm% (0.0-3.0); Hemoglobin (Hb) 10.2 g/dL (14.0-18.0); O2 Tension (PaO2), arterial 87.3 mmHg (> 80.0); Potassium - ABG Lab 4.57 mmol/L (3.70-5.30); Puncture Site RRA; pH, Arterial 7.46 (7.35-7.45)
[2021-12-06 12:27] LABS: Hemoglobin 9.3 g/dL (14.0-18.0); Mean Corpuscular HGB CONC 29.7 g/dL (32.0-36.0); Mean Corpuscular Hemoglobin 28.6 pg (27.0-31.0); Mean Corpuscular Volume 96.2 fl (78.0-98.0); Mean Platelet Volume 10.6 fL (7.4-10.4); Platelet Count 63 thou/uL (130-400); RBC Distribution Width 15.4 % (11.5-14.5); Red Blood Cell (RBC) Count 3.26 mill/uL (4.70-6.10); White Blood Cell (WBC) Count 5.8 thou/uL (4.8-10.8)
[2021-12-06 12:36] LABS: ALT (SGPT) Less than 7 U/L (8-55); AST (SGOT) 22 U/L (5-34); Albumin 2.7 g/dL (3.4-4.8); Alkaline Phosphatase 134 U/L (40-110); Anion Gap 22 mmol/L (10-20); Bilirubin, Total 3.9 mg/dL (0.2-1.2); CK (CPK) 114 U/L (30-200); Calc. Creatinine Clearance 0 mL/min (70-130); Calcium 8.7 mg/dL (7.8-10.44); Carbon Dioxide 18 mmol/L (23-31); Chloride 110 mmol/L (98-107); Estimated GFR 5; Globulin 4.3 g/dL (2.4-3.5); Glucose 75 mg/dL (80-115); Lipase 9 U/L (8-78); Potassium 4.7 mmol/L (3.5-5.1); Sodium 145 mmol/L (136-145)
[2021-12-06 12:47] LABS: Anisocytosis SLIGHT = 6-15 cells (100X) (0-5/hpf); Band 1 % (5-11); Eosinophils 2 % (0-10); Hypochromia SLIGHT = 6-15 cells (100X) (0-5/hpf); Large Platelets SLIGHT; Lymphocytes 18 % (21-51); MDiff Complete? YES; Monocytes 9 % (0-10); Neutrophil 69 % (42-75); Nucleated RBC 2 % (0); Ovalocytes SLIGHT = 2-5 cells (100X) (0-1/hpf); Platelet Morphology Comment Appears Decreased; Poikilocytosis SLIGHT = 6-15 cells (100X) (0-5/hpf); Polychromasia MODERATE = 3-4 cells (100X) (0-2/hpf); Schistocytes SLIGHT = 2-5 cells (100X) (0-1/hpf); Target Cells SLIGHT = 2-5 cells (100X) (0-1/hpf)
[2021-12-06 12:50] LABS: BUN (Urea Nitrogen) 133 mg/dL (8.4-25.7)
[2021-12-06 13:10] LABS: CKMB 2.3 ng/mL (0-6.6)
[2021-12-06] MEDS ORDERED: Vancomycin 1 GM/200 ML BAG ONE (13:12)
[2021-12-06] MEDS ORDERED: Cefepime 2 GM VIAL ONE (13:12)
[2021-12-06] MEDS ORDERED: Senokot S 8.6-50 MG TAB PO PRN (13:47)
[2021-12-06] MEDS ORDERED: Acetaminophen 325 MG TAB PO PRN (13:47)
[2021-12-06] MEDS ORDERED: Ondansetron ODT 4 MG TAB PO PRN (13:47)
[2021-12-06] MEDS ORDERED: DOPamine 400 MG/D5W 250 ML 250 ML ONE (13:52)
[2021-12-06 14:10] LABS: SARS-CoV-2 NAA Rapid Test Not Detected (NotDetected)
[2021-12-06 14:54] LABS: Lactic Acid 1.8 mmol/L (0.5-2.2)
[2021-12-06] MEDS ORDERED: Heparin 5,000 UNITS/ML VIAL SC SCH (15:00)
[2021-12-06 15:42] LABS: Bacteria/HPF 1+ HPF (None Seen); Bilirubin Negative (Negative); Blood, Urine Negative (Negative); Clarity Clear (Clear); Glucose, Urine (Dipstick) Normal (Negative); Ketone, Urine 10 mg/dL (Negative); Leukocyte Negative Leu/uL (Negative); Nitrite Negative (Negative); Protein, Urine (Dipstick) 50 mg/dL (Neg-Trace); RBC/HPF 0-3 HPF (0-3); Specific Gravity, Urine 1.019 (1.002-1.036); Squamous Epithelial 0-3 HPF (0-3); Urobilinogen 6 mg/dL (Less than 2); WBC/HPF 0-3 HPF (0-3)
[2021-12-06] MEDS ORDERED: Dextrose 50% Abboject 50 ML SYRINGE SLOW IVP PRN ×2 (15:47→15:48)
[2021-12-06] MEDS ORDERED: Dextrose 5% in Water 1,000 ML IV PRN ×2 (15:47→15:48)
[2021-12-06] MEDS ORDERED: HumaLOG 300 UNITS/3 ML VIAL SC PRN (15:48)
[2021-12-06 15:58] VITALS: BMI 19.1
[2021-12-06] MEDS ORDERED: metroNIDAZOLE 500 MG in Premix Bag 1 BAG IVPB SCH (16:00)
[2021-12-06] MEDS ORDERED: DOPamine 400 MG/D5W 250 ML 250 ML IVPB SCH (16:00)
[2021-12-06 16:09] VITALS: TEMP 98.6
[2021-12-06] MEDS ORDERED: Dextrose 10% in Water 1,000 ML IV SCH (16:15)
[2021-12-06 16:18] VITALS: BP 87/55
[2021-12-06] MEDS ORDERED: NOREPINEPHRINE 8 MG/250 ML-D5W 250 ML ONE (16:30)
[2021-12-06] MEDS ORDERED: NOREPINEPHRINE 8 MG/250 ML-D5W 250 ML IVPB SCH (16:45)
[2021-12-06 16:47] LABS: Legionella Urinary Ag Negative (Negative); Strep pneumo Urine Ag NEGATIVE (NEGATIVE)
[2021-12-06 16:52] LABS: Troponin I 1.602 ng/mL (< 0.028)
[2021-12-06] MEDS ORDERED: Sodium Bicarb 50 MEQ/50 ML VIAL ONE (17:30)
[2021-12-06] MEDS ORDERED: Sodium Bicarb 50 MEQ/50 ML VIAL IVP SCH (17:30)
[2021-12-06] MEDS: Sodium Chloride 0.9% 250 ML 250 ML IVPB SCH ×2 (18:20→18:21)
[2021-12-06] MEDS ORDERED: Famotidine 20 MG TAB PO SCH (21:00)
[2021-12-06] MEDS ORDERED: Cefepime 1 GM in Sodium Chloride 0.9% 100 ML IVPB SCH (21:00)
[2021-12-06] MEDS ORDERED: Atorvastatin Calcium 10 MG TAB PO SCH (21:00)
[2021-12-07] MEDS ORDERED: Aspirin Chewable 81 MG TAB PO SCH (09:00)
[2021-12-07] MEDS ORDERED: Cefepime 0.5 GM, Admixture Fee 1 EACH in Sodium Chloride 0.9% 100 ML IVPB SCH (17:00)
== END 2021-12-06 20:15 | disposition hospice, inpatient (51) | DRG 177 ==
LOC: ERS 11:17 → CCU 13:47
PROVIDERS: ADMIT Student in an Organized Health Care Education/Training Program; ATTEND Student in an Organized Health Care Education/Training Program
PROC: 5A0935A Assistance with Respiratory Ventilation, Less than 24 Consecutive Hours, High Flow/Velocity Cannula (ICD-10-PCS; principal; 2021-12-06)
PROC: 06HY33Z Insertion of Infusion Device into Lower Vein, Percutaneous Approach (ICD-10-PCS; 2021-12-06)
DX: J69.0 Pneumonitis due to inhalation of food and vomit (principal); G92.8 Other toxic encephalopathy; J96.01 Acute respiratory failure with hypoxia; I50.23 Acute on chronic systolic (congestive) heart failure; R57.0 Cardiogenic shock; N17.9 Acute kidney failure, unspecified; I13.0 Hypertensive heart and chronic kidney disease with heart failure and stage 1 through stage 4 chronic kidney disease, or unspecified chronic kidney disease; I42.9 Cardiomyopathy, unspecified; N18.4 Chronic kidney disease, stage 4 (severe); Z66 Do not resuscitate; E11.649 Type 2 diabetes mellitus with hypoglycemia without coma; I25.10 Atherosclerotic heart disease of native coronary artery without angina pectoris; E78.5 Hyperlipidemia, unspecified; I95.0 Idiopathic hypotension; R77.8 Other specified abnormalities of plasma proteins; D53.9 Nutritional anemia, unspecified; M10.9 Gout, unspecified; D63.1 Anemia in chronic kidney disease; D72.829 Elevated white blood cell count, unspecified; Z20.822 Contact with and (suspected) exposure to COVID-19; E11.22 Type 2 diabetes mellitus with diabetic chronic kidney disease; Z79.899 Other long term (current) drug therapy; Z95.810 Presence of automatic (implantable) cardiac defibrillator; Z88.8 Allergy status to other drugs, medicaments and biological substances
CPT/HCPCS: 36415; 36416; 36556; 36600; 71045; 80053; 81003; 81015; 82533; 82550; 82553; 82805; 83605; 83690; 83880; 84145; 84443; 84484; 84550; 85025; 87040; 87449; 87899; 93005; 96365; 96374; 96375; J0692; J1265; J3370

== ENCOUNTER 2021-12-06 20:15 | Inpatient (IN) | payer OTHER ==
[2021-12-06] MEDS: Morphine 4 MG/ML VIAL ONE ×2 (20:40→21:21)
[2021-12-06] MEDS ORDERED: Lorazepam 2 MG/ML VIAL SLOW IVP SCH (21:00)
[2021-12-06] MEDS ORDERED: Scopolamine 1.5 mg/72 hour Patch TOP PRN (21:15)
[2021-12-06] MEDS ORDERED: Morphine 4 MG/ML VIAL SLOW IVP PRN (21:15)
[2021-12-06] MEDS ORDERED: Ondansetron PF 4 MG/2 ML Vial IVP PRN (21:15)
[2021-12-06] MEDS ORDERED: Bisacodyl 10 MG SUPP PR PRN (21:17)
[2021-12-07] MEDS ORDERED: Morphine 4 MG/ML VIAL SLOW IVP SCH (01:00)
== END 2021-12-06 21:50 | disposition expired | DRG 951 ==
LOC: CCU 20:15
PROVIDERS: ADMIT Family Medicine; ATTEND Family Medicine
DX: Z51.5 Encounter for palliative care (principal); J69.0 Pneumonitis due to inhalation of food and vomit; J96.01 Acute respiratory failure with hypoxia; I50.23 Acute on chronic systolic (congestive) heart failure; G92.8 Other toxic encephalopathy; I42.8 Other cardiomyopathies; N18.4 Chronic kidney disease, stage 4 (severe); N17.9 Acute kidney failure, unspecified; I13.0 Hypertensive heart and chronic kidney disease with heart failure and stage 1 through stage 4 chronic kidney disease, or unspecified chronic kidney disease; I25.10 Atherosclerotic heart disease of native coronary artery without angina pectoris; E78.5 Hyperlipidemia, unspecified; E11.22 Type 2 diabetes mellitus with diabetic chronic kidney disease; I95.9 Hypotension, unspecified; R77.8 Other specified abnormalities of plasma proteins; D53.9 Nutritional anemia, unspecified; Z79.899 Other long term (current) drug therapy; Z88.8 Allergy status to other drugs, medicaments and biological substances; Z95.810 Presence of automatic (implantable) cardiac defibrillator; Z79.82 Long term (current) use of aspirin; Z79.4 Long term (current) use of insulin; Z83.3 Family history of diabetes mellitus; Z82.49 Family history of ischemic heart disease and other diseases of the circulatory system
CPT/HCPCS: J2270